=== PATIENT | female | born 1940 | race Caucasian/White ===

== ENCOUNTER → 2020-04-12 10:56 | Outpatient (BNVA) | payer MEDICARE, SELFPAY | PROVIDERS: Family Provider Family Medicine; PCP Family Medicine; Visit Provider Family Medicine | DX: I10 Essential (primary) hypertension (principal) | CPT/HCPCS: 80053; 85025 ==

== ENCOUNTER 2020-04-22 10:37 | Outpatient (CLI) | payer MEDICARE, SELFPAY ==
--- NOTE | 2020-04-22 11:00 | MR_ITS ---
WS: [id number] MRI LUMBAR SPINE NONCONTRAST TECHNIQUE: Sagittal T1, T2 and STIR imaging. Axial T1 and T2 imaging. CLINICAL INFORMATION: M48.07 Spinal stenosis, lumbosacral region COMPARISON: MRI August 20, 2013 FINDINGS: Mild lumbar curve. No acute compression. Degenerative disc disease has progressed since 2013. Progres sed disc space narrowing throughout the lumbar spine worse at L4-5. L1-L2: Mild disc bulging with osteophytic ridging. Tiny left subarticular protrusion. Slight impingem ent traversing left L2 nerve root. Mild left foraminal narrowing. Mild facet arthropathy. L2-L3: Mild disc bulging with osteophytic ridging. Moderate central canal stenosis is new from previo us. Shallow left central and pericentral protrusion. Impingement on the traversing L3 nerve roots alesha aterally. Moderate left foraminal narrowing. L3-L4: Mild disc bulging with osteophytic ridging. Moderate central canal stenosis is new. Impingemen t traversing right L4 nerve root. Mild left foraminal narrowing. Mild facet arthropathy. L4-L5: Mild disc bulging with osteophytic ridging. Mild central canal stenosis is stable. Impingement traversing L5 nerve roots. Mild to moderate right foraminal narrowing. Mild facet arthropathy. L5-S1: Mild disc bulging with slight effacement of the ventral thecal sac. Slight contact of the prabhjot ersing left greater than right S1 nerve roots. Foramen are patent. Mild facet arthropathy. Visualized pelvic bony structures: Normal. Paravertebral soft tissues: Normal. MR/MR lumbar spine wo con* [id number] IMPRESSION: 1. Mild lumbar curve. No acute compression. 2. Moderate central canal stenosis L2-L3 and L3-L4 has progressed since 2013. Mild central canal stenosis L4-5 is stable. 3. Shallow central left pericentral protrusion L2-3 is new from previous with moderate central canal stenosis and impingement on the traversing L3 nerve root s bilaterally. 4. Moderate left L2-3 foraminal narrowing with a left foraminal protrusion imp inges the exiting left L2 nerve root. 5. Mild to moderate foraminal narrowing left L3-L4 and right L4-5.
== END 2020-04-22 10:38 | disposition home or self-care (01) ==
LOC: RADSHAW 10:43
PROVIDERS: PCP Family Medicine; Visit Provider Family Medicine
DX: M48.07 Spinal stenosis, lumbosacral region (principal); M51.26 Other intervertebral disc displacement, lumbar region
CPT/HCPCS: 72148

== ENCOUNTER 2020-04-25 13:57 | Outpatient (CLI) | payer MEDICARE, SELFPAY ==
--- NOTE | 2020-04-25 14:07 | XRR_ITS ---
PROCEDURE INFORMATION: Exam: XR Lumbosacral Spine, 2 or 3 Views Exam date and time: 04/25/2020 2:31 PM Age: 80 years old Clinical indication: Low back pain; Additional info: Low back pain x 2 years TECHNIQUE: Imaging protocol: XR of the lumbosacral spine, 2 or 3 views. COMPARISON: MR lumbar spine wo con* [id number] 04/22/2020 10:59 AM FINDINGS: Vertebrae: There is multilevel intervertebral disc space narrowing at seen corresponding to severe osteoarthritis No acute fracture. Normal alignment. Soft tissues: Unremarkable. XR/XR lumbar spine f/e only [id number] IMPRESSION: No acute findings. Severe osteoarthritis
== END 2020-04-25 13:58 | disposition home or self-care (01) ==
LOC: RAD 14:05
PROVIDERS: PCP Family Medicine; Visit Provider Licensed Practical Nurse
DX: M51.17 Intervertebral disc disorders with radiculopathy, lumbosacral region (principal); M47.816 Spondylosis without myelopathy or radiculopathy, lumbar region
CPT/HCPCS: 72120; 99204

== ENCOUNTER → 2021-03-28 11:59 | Outpatient (BNVA) | payer MEDICARE, SELFPAY | PROVIDERS: PCP Family Medicine; Visit Provider Family Medicine | DX: I10 Essential (primary) hypertension (principal) | CPT/HCPCS: 80053; 84443; 85025 ==

== ENCOUNTER 2021-07-15 09:34 | Emergency (ER) | payer MEDICARE, SELFPAY ==
[2021-07-15 09:36] VITALS: BP 118/68; PULSE 111; RESP 17; TEMP 36.5; O2SAT 96; BMI 25.0
--- NOTE | 2021-07-15 09:55 | XRR_ITS ---
PROCEDURE INFORMATION: Exam: XR Chest Exam date and time: 07/15/2021 9:55 AM Age: 81 years old Clinical indication: Other: Weakness; Additional info: Fall, weakness TECHNIQUE: Imaging protocol: XR of the chest. Views: 1 view. COMPARISON: CR Chest 1 [place] [id number] 03/15/2016 12:17 PM FINDINGS: Lungs: Unremarkable. No consolidation. Pleural spaces: Unremarkable. No pleural effusion. No pneumothorax. Heart/Mediastinum: Unremarkable. No cardiomegaly. Bones/joints: No acute findings. XR/XR chest 1V portable [id number] IMPRESSION: No acute findings.
--- NOTE | 2021-07-15 09:55 | ED_ITS ---
HPI - Fall General: Chief Complaint: Fall Stated Complaint: FALL/ WEAKNESS Time Seen by Provider: 07/15/21 09:55 History of Present Illness: HPI Narrative: 81-year-old female presents emergency room with complaint of a fall this morning around 6 AM and was down for about an hour and could not get up off the floor. She is not previously had issues with falls. She had just gotten up off the toilet when this happened. EMS reports on arrival her sats are normal and she was in A. fib. I cannot find anywhere in her chart that she was previously diagnosed with A. fib although she is on verapamil 120 extended release daily. Nothing in her previous notes and no EKGs or monitor strips from the past that showed atrial fibrillation patient never remembers being told she had any irregular heartbeat or atrial fibrillation she is not on any anticoagulants she denies any other injuries. She cannot recall all the events. She not having any chest pain at this time. MD complaint: fall Associated symptoms-after fall: Denies abdominal pain or chest pain Review of Systems Const: Denies: fever(s), chills, body aches, change in appetite, fatigue or malaise ENMT: Denies: throat pain, ear or mastoid pain, nasal discharge or nasal congestion Card: Denies: chest pain, edema, dyspnea on exertion or orthopnea Resp: Denies: dyspnea, productive cough or non-productive cough GI: Denies: abdominal pain, nausea, vomiting, hematemesis, coffee ground emesis, diarrhea, constipation, bloating, hematochezia or melena : Denies: flank pain, difficulty voiding, dysuria, urinary frequency or urinary urgency Skin/Breast: Denies: rash or pruritus PFSH ED PFSH: Medical History Anxiety Hypertension Intervertebral disc disorder with radiculopathy of lumbosacral region Lumbar stenosis with neurogenic claudication Lumbosacral spinal stenosis Surgical History History of surgical removal of skin lesion Family History Mother Heart disease Father Heart disease Social History Smoking and tobacco status: never smoked Alcohol intake: never Household members: spouse and other Details: Primary caregiver for her Marital status: service: No Current occupational status: retired History of recent travel: No Physical Exam Const: COMMON NORMALS: no acute distress GENERAL APPEARANCE: cooperative and comfortable ORIENTATION/CONSCIOUSNESS: Yes awake, Yes oriented to person, Yes oriented to place and Yes oriented to time HENMT: COMMON NORMALS: normocephalic, atraumatic and hearing grossly normal bilaterally HEAD & SCALP: normocephalic and atraumatic Neck/C-Spine: COMMON NORMALS: no JVD Resp: COMMON NORMALS: normal respiratory effort, No retractions, No use of accessory muscles and clear to auscultation bilaterally AUSCULTATION: clear to auscultation bilaterally Cardio: COMMON NORMALS: no JVD, regular rate, regular rhythm and No murmurs present (Cardio) RATE: regular rate RHYTHM: regular rhythm GI: COMMON NORMALS: Soft to palpation and No hepatosplenomegaly present AUSCULTATION: Yes normoactive bowel sounds PALPATION: Yes Soft to palpation, No Tenderness to palpation present (GI), No Guarding due to palpation present (GI) and Yes No hepatosplenomegaly present Extremity: COMMON NORMALS: normal to inspection, capillary refill normal, no clubbing, cyanosis or edema, no calf tenderness and no pedal edema Neuro: SENSORIUM/ORIENTATION: Yes oriented to person, Yes oriented to place and Yes oriented to time Skin: COMMON NORMALS: no rashes or lesions noted GENERAL SKIN EXAM: no rashes or lesions noted Course Vital Signs: Vital signs: Vital Signs Temperature 97.7 F 07/15/21 09:36 Pulse Rate 76 07/15/21 12:46 Respiratory Rate 18 07/15/21 12:46 Blood Pressure 129/68 07/15/21 12:46 Pulse Oximetry 93 07/15/21 12:46 MDM - Fall MDM Narrative: Medical decision making narrative: Atrial fibrillation pre- existing. Patient rate is controlled at this time. She is not having any further symptoms. Wearing Goed[place] discharge her home continue current medications have her follow-up with her primary care doctor within the week. Has any worsening or change symptoms return. Lab Data: Labs: Lab Results 07/15/21 07/15/21 07/15/21 09:25 09:25 09:25 WBC 17.1 10^3/uL H 10 ^3/uL (4.0-10.0) RBC 4.14 10^6/uL 10^6 /uL (4.1-5.3) Hgb 12.2 g/dL g/dL (11.5-15.3) Hct 36.4 % L % (37.0-47.0) MCV 87.9 fl fl (81-99) MCH 29.5 pg pg (28.0-34.0) MCHC 33.5 g/dL g/dL (30.0-36.0) RDW 13.7 % % (12.1-15.1) Plt Count 793 10^3/cmm H 10 ^3/cmm (130-400) MPV 10.2 fL fL (7.4-10.4) Neut % (Auto) 83.2 % % Lymph % (Auto) 7.9 % % [place] % (Auto) 4.9 % % Eos % (Auto) 3.0 % % Baso % (Auto) 0.4 % % Neut # (Auto) 14.22 10^3/uL H 1 0^3/uL (1.8-7.7) Lymph # (Auto) 1.3 10^3/uL 10^3/ uL (0.8-4.8) [place] # (Auto) 0.8 10^3/uL 10^3/ uL (0.2-0.9) Eos # (Auto) 0.5 10^3/uL 10^3/ uL (0.0-0.8) Baso # (Auto) 0.1 10^3/uL 10^3/ uL (0.0-0.1) Nucleated RBC % (a uto) 0 % % Nucleated RBCs # 0.0 /100WBC /100W BC Sodium 135 mmol/L L mmol /L (136-145) Potassium 4.8 mmol/L mmol/L (3.5-5.1) Chloride 99 mmol/L mmol/L (98-107) Carbon Dioxide 18 mmol/L L mmol/ L (22-29) Anion Gap 22.8 H (5-19) BUN 30 mg/dL H mg/dL (8-23) Creatinine 1.0 mg/dL H mg/dL (0.5-0.9) GFR Calculation Not Reportable Glucose 90 mg/dL mg/dL (65-115) Calculated Osmolal ity 286 mOsm/kg mOsm/ kg (285-295) Calcium 8.3 mg/dL L mg/dL (8.5-10.5) Total Bilirubin 0.4 mg/dL mg/dL (0.15-1.2) AST 9 U/L U/L (0-32) ALT 6 U/L U/L (0-33) Alkaline Phosphata se 275 IU/L H IU/L (35-105) Creatine Kinase Troponin T Baselin e 22 ng/L H ng/L (0-10) Troponin T 120 Min qagan [place] Delta Troponin T NT-Pro-B Natriuret Pep Total Protein 6.2 g/dL L g/dL (6.6-8.7) Albumin 3.3 g/dL L g/dL (3.5-5.2) Globulin 2.9 g/dL g/dL (1.3-4.6) Urine Color Urine Appearance Urine pH Ur Specific Gravit y Urine Protein Urine Glucose (UA) Urine Ketones Urine Blood Urine Nitrate Urine Bilirubin Urine Urobilinogen Ur Leukocyte Charline ase 07/15/21 07/15/21 07/15/21 09:25 10:55 11:21 WBC RBC Hgb Hct MCV MCH MCHC RDW Plt Count MPV Neut % (Auto) Lymph % (Auto) [place] % (Auto) Eos % (Auto) Baso % (Auto) Neut # (Auto) Lymph # (Auto) [place] # (Auto) Eos # (Auto) Baso # (Auto) Nucleated RBC % (a uto) Nucleated RBCs # Sodium Potassium Chloride Carbon Dioxide Anion Gap BUN Creatinine GFR Calculation Glucose Calculated Osmolal ity Calcium Total Bilirubin AST ALT Alkaline Phosphata se Creatine Kinase 33 U/L U/L (26-192) Troponin T Baselin e Troponin T 120 Min qagan [place] 19.12 ng/L H ng/L (0-10) Delta Troponin T -2.88 ABS# L ABS# (0-10) NT-Pro-B Natriuret Pep 8943 pg/mL H pg/m L (0-450) Total Protein Albumin Globulin Urine Color Yellow (Yellow) Urine Appearance Clear (CLEAR) Urine pH 5 (5-7) Ur Specific Gravit y 1.010 (1.005-1.030) Urine Protein Neg (Negative) Urine Glucose (UA) Norm (Normal) Urine Ketones 1+ H (Negative) Urine Blood Neg (Negative) Urine Nitrate Negative (Negative) Urine Bilirubin Neg (Negative) Urine Urobilinogen Norm mg/dL mg/dL (Negative) Ur Leukocyte Charline ase Negative (Negative) Discharge Plan Discharge Patient Disposition: Home Clinical Impression: Atrial fibrillation Qualifiers: Atrial fibrillation type: longstanding persistent Qualified Code(s): I48.11 - Longstanding persistent atrial fibrillation Condition: Stable Prescriptions: New aspirin 81 mg tablet,delayed release (DR/EC) 81 mg PO DAILY Qty: 30 RF: 0 No Action tacrolimus 0.1 % ointment 1 applic topical BID Qty: 100 RF: 1 nitroglycerin [Nitrostat] 0.4 mg tablet, sublingual 0.4 mg SUBLINGUAL Q5M PRN (Reason: chest pain) Qty: 25 RF: 3 verapamil 120 mg tablet extended release 120 mg PO BID 30 Days Qty: 180 RF: 3 sulindac 200 mg tablet 200 mg PO BID PRN (Reason: inflammation knee) 30 Days Qty: 60 RF: 2 losartan 100 mg tablet 100 mg PO DAILY 90 Days Qty: 90 RF: 3 lorazepam 1 mg tablet 1 mg PO BID PRN (Reason: anxiety) 60 Days Qty: 120 RF: 2 citalopram 40 mg tablet 40 mg PO .once daily 90 Days Qty: 90 RF: 1 hydrocodone-acetaminophen 10-325 mg tablet 1 tab PO Q6H PRN (Reason: pain) 30 Days Qty: 120 RF: 0 mirtazapine 15 mg tablet 15 mg PO DAILY 90 Days Qty: 90 RF: 1 Discharge Orders: Discharge ED (Routine); Ordered 07/15/21 Ordered By: Jonel Stanford Referrals: Theodora Neal MD [Primary Care Provider] - Discharge Diet: Usual diet Discharge Activity: Limit activity as instructed Patient Instructions: Opioid Safety Activity Restrictions/Additional Instructions: Follow-up with your primary care doctor within the next 2 to 3 days. Return if you have further problems. Start 81 mg tablet aspirin daily. Case management will call make arrangements for you to have a 48-hour Holter monitor. Coding Level of Care Code ED Auto Body Estimator for Leah Fwd Exam Comprehensive
[2021-07-15 10:00] LABS: Basophils # 0.1 10^3/uL (0.0-0.1); Basophils % 0.4 %; Eosinophils # 0.5 10^3/uL (0.0-0.8); Hematocrit 36.4 % (37.0-47.0); Hemoglobin 12.2 g/dL (11.5-15.3); Lymphocytes # 1.3 10^3/uL (0.8-4.8); Lymphocytes % 7.9 %; Mean Corpuscular HGB Conc 33.5 g/dL (30.0-36.0); Mean Corpuscular Hemoglobin 29.5 pg (28.0-34.0); Mean Corpuscular Volume 87.9 fl (81-99); Mean Platelet Volume 10.2 fL (7.4-10.4); Monocytes # 0.8 10^3/uL (0.2-0.9); Monocytes % 4.9 %; Neutrophils # 14.22 10^3/uL (1.8-7.7); Neutrophils % 83.2 %; Nucleated Red Blood Cells % 0 %; Platelet Count 793 10^3/cmm (130-400); Red Blood Count 4.14 10^6/uL (4.1-5.3); Red Cell Distribution Width 13.7 % (12.1-15.1); White Blood Count 17.1 10^3/uL (4.0-10.0)
[2021-07-15 10:13] LABS: Troponin(5th) Baseline 22 ng/L (0-10)
[2021-07-15 10:15] LABS: Alanine Aminotransferase 6 U/L (0-33); Albumin Level 3.3 g/dL (3.5-5.2); Alkaline Phosphatase 275 IU/L (35-105); Anion Gap 22.8 (5-19); Aspartate Amino Transferase 9 U/L (0-32); Blood Urea Nitrogen 30 mg/dL (8-23); Calcium 8.3 mg/dL (8.5-10.5); Carbon Dioxide 18 mmol/L (22-29); Chloride 99 mmol/L (98-107); Globulin 2.9 g/dL (1.3-4.6); Glucose 90 mg/dL (65-115); Osmolality Calculated 286 mOsm/kg (285-295); Potassium 4.8 mmol/L (3.5-5.1); Sodium 135 mmol/L (136-145); Total Bilirubin 0.4 mg/dL (0.15-1.2); Total Protein 6.2 g/dL (6.6-8.7)
[2021-07-15 10:40] LABS: Creatine Phosphokinase 33 U/L (26-192); NT Pro B Type Natriuretic Pept 8943 pg/mL (0-450)
[2021-07-15 11:17] LABS: Add Urine Microscopic? NO; Charge for UA Resulting for Rev
[2021-07-15 11:24] LABS: Bilirubin Urine Neg (Negative); Blood Urine Neg (Negative); Glucose Urine UA Norm (Normal); Ketones Urine 1+ (Negative); Leukocyte Esterase Urine Negative (Negative); Nitrate Urine Negative (Negative); Protein Urine Neg (Negative); Urine Appearance Clear (CLEAR); Urine Color Yellow (Yellow); Urobilinogen Urine Norm (Negative); pH Urine 5 (5-7)
[2021-07-15 11:50] LABS: Troponin 5 2HR 19.12 ng/L (0-10)
[2021-07-15] MEDS: verapamil ER 240 mg Tablet 120 MG PO (11:50)
[2021-07-15] MEDS: metoprolol tartrate 1 mg/1 mL SDV 5 mL 5 MG IVP (11:50)
[2021-07-15 11:51] LABS: Troponin 5 2HR Delta -2.88 ABS# (0-10)
[2021-07-15 12:46] VITALS: BP 129/68; PULSE 76; RESP 18; O2SAT 93
--- NOTE | 2021-07-15 13:10 | DCPLANNER ---
scientific research manager had message to schedule an outpatient 48 hour halter monitor for patient. scientific research manager faxed signed order to heart care, who will call patient with appointment information.
--- NOTE | 2021-07-15 15:55 | ECG_ITS ---
[facility] Test Date: 2021-07-15 Pat Name: Evangelina Vides Department: Room: Gender: Female Autocad Detailer: : 1940 Requested By: Delores Dawson Order Number: [id number] Reading MD: CHHAYA HARRELL Measurements Intervals [place] Rate: 101 P: MO: QRS: -9 QRSD: 85 T: 31 QT: 348 QTc: 453 Interpretive Statements ATRIAL FIBRILLATION WITH RAPID VENTRICULAR RESPONSE LOW QRS VOLTAGE IN PRECORDIAL LEADS [QRS DEFLECTION < 1.0 mV IN CHEST LEADS] ANTEROSEPTAL MYOCARDIAL INFARCTION , PROBABLY OLD [40+ ms Q WAVE IN V1-V4] Compared to ECG 03/16/2016 04:49:52 Low QRS voltage now present Myocardial infarct finding now present Sinus rhythm no longer present First degree AV block no longer present Electronically Signed On 07-16-2021 19:59:58 COMPUTER LABORATORY TECHNICIAN by CHHAYA HARRELL [id number]
--- NOTE | 2021-07-21 07:35 | DCPLANNER ---
Patient [facility]
== END 2021-07-15 12:48 | disposition home or self-care (01) ==
PROVIDERS: Physician Assistant; Emergency Provider Family Medicine; PCP Family Medicine
DX: I48.11 Longstanding persistent atrial fibrillation (principal); I10 Essential (primary) hypertension
CPT/HCPCS: 36415; 71045; 80053; 81003; 82550; 83880; 84484; 85025; 93005; 96374; 99283; J3490

== ENCOUNTER 2021-07-18 15:04 | Outpatient (CLI) | payer MEDICARE, SELFPAY ==
--- NOTE | 2021-07-18 15:46 | CT_ITS ---
WS: [id number] Exam: CT head wo con* [id number] Date/Time of Exam: 07/18/2021 3:46 PM Reason For Exam: acute left sided weakness DLP: 1172.[address] scans at [facility] use at least one of these dose optimization techniques: automated e xposure control; mA and/or kV adjustment per patient size (includes targeted exams where dose is matc hed to clinical indication); or iterative reconstruction. There is an area of decreased attenuation in the right thalamus suspicious for an acute or subacute i nfarct. No sign of acute intracranial bleed. No mass effect or shift. The ventricles and basal cister ns are normal in size and configuration. No extra-axial fluid collections are noted. The skull is int act. The facial sinuses are clear. Trace amount of fluid in the dependent right mastoids. Normal left mastoids. CT/CT head wo con* [id number] IMPRESSION: 1. 1.5 cm area of decreased attenuation in the right thalamus suspicious for medel bacute or acute infarct. No bleed or mass effect. 2. Trace amount of fluid in the right mastoids.
== END 2021-07-18 15:05 | disposition home or self-care (01) ==
PROVIDERS: PCP Family Medicine; Visit Provider Family Medicine
DX: R53.1 Weakness (principal)
CPT/HCPCS: 70450

== ENCOUNTER 2021-07-19 13:36 | Observation (INO) | payer MEDICARE, OTHER, SELFPAY ==
--- NOTE | 2021-07-19 13:38 | ED_ITS ---
HPI - Neuro Symptoms/Deficit General: Chief Complaint: General Medical Stated Complaint: EXTREMITY NUMBNESS Time Seen by Provider: 07/19/21 13:38 History of Present Illness: HPI Narrative: 81-year-old male presents emergency room complaining of left leg weakness. Seen a couple days ago she had an episode where she fell after getting off the toilet states she frequently falls she had no weakness at that time she had very mild A. fib responded rather quickly we noted she was on verapamil her daughter was there at the times a day had been told she had irregular heartbeat in the past we started on aspirin discharge home she did follow-up with her primary care doctor this week and a CT of the head was done showed a new subacute right infarct. She still has weakness in her left leg and has difficulty raising off the bed which is new from we seen her previously she also has a little bit of left arm drift. Her daughter reports that this morning she had bilateral numbness tingling loss of sensation in the arms and legs that has resolved. They have noticed any speech or swallowing difficulty she states her's extremities feel like they are asleep and her feet feel like they are on [id number]. She denies any visual changes. Onset (ago): day(s) Timing confirmed by: family member History of same: Yes Severity: mild Quality: weak (Left leg) Relieving factors: none Exacerbating factors: none Associated symptoms: Reports weakness; Deny chest pain, cough, diaphoresis, fevers/chills, headache(s), anorexia, malaise, nausea, seizures, short of breath, syncope, tingling, vertigo or vomiting Treatments Prior to Arrival: none Review of Systems Const: Denies: malaise or diaphoresis ENMT: Denies: throat pain, ear or mastoid pain, nasal discharge or nasal congestion Card: Denies: chest pain or syncope Resp: Denies: dyspnea, productive cough or non-productive cough GI: Denies: nausea or vomiting : Denies: flank pain, difficulty voiding, dysuria, urinary frequency or urinary urgency Skin/Breast: Denies: rash or pruritus Neuro: Denies: headache(s) or vertigo PFS ED PFSH: Medical History Anxiety CAD (coronary artery disease) GERD (gastroesophageal reflux disease) Hypercholesteremia Hypertension Intervertebral disc disorder with radiculopathy of lumbosacral region Lumbar stenosis with neurogenic claudication Lumbosacral spinal stenosis Type 2 diabetes mellitus Surgical History History of surgical removal of skin lesion Family History Mother Heart disease Father Heart disease Social History Smoking and tobacco status: never smoked Alcohol intake: never Household members: spouse and other Details: Primary caregiver for her Marital status: service: No Current occupational status: retired History of recent travel: No NIH stroke score NIHSS: Level Of Consciousness - 1a: 0 Level Of Consciousness Questions - 1b: Both Correct Level Of Consciousness Commands - 1c: Both Correct Best Gaze - 2: Normal Visual [place] - 3: No Visual Loss Facial Palsy - 4: Normal Motor Arm Right - 5: No Drift Motor Arm Left - 5: Drift Motor Leg Right - 6: No Drift Motor Leg Left - 6: Effort Against Mobile Limb Ataxia - 7: Present In One Limb Sensory - 8: Mild To Moderate Loss Best Language - 9: No Aphasia Dysarthia - 10: Mild/Moderate Dysarthia Extinction And Inattention - 11: 0 Score: Total Score: 6 Physical Exam Const: GENERAL APPEARANCE: cooperative and comfortable ORIENTATION/CONSCIOUSNESS: Yes awake HENMT: COMMON NORMALS: normocephalic, atraumatic, hearing grossly normal bilaterally, external ears normal, EAC's normal, TM's normal bilaterally, Normal nasal mucous membranes and turbinates present, moist oral mucous membranes and oropharynx normal HEAD & SCALP: normocephalic and atraumatic NOSE: Normal nasal mucous membranes and turbinates present EXTERNAL EAR: Yes external ears normal EXTERNAL AUDITORY CANAL: EAC's normal TYMPANIC MEMBRANE: TM's normal bilaterally Eye: COMMON NORMALS: Equal, round and reactive pupils present, EOMs intact bilaterally, conjunctivae normal and no scleral icterus CONJUNCTIVA: Yes conjunctivae normal PUPIL: Yes Equal, round and reactive pupils present Neck/C-Spine: COMMON NORMALS: full ROM, no lymphadenopathy, supple and no JVD Resp: COMMON NORMALS: normal respiratory effort, No retractions, No use of accessory muscles and clear to auscultation bilaterally AUSCULTATION: clear to auscultation bilaterally Cardio: COMMON NORMALS: no JVD, regular rate, regular rhythm and No murmurs p resent (Cardio) RATE: regular rate RHYTHM: regular rhythm GI: COMMON NORMALS: Soft to palpation and No hepatosplenomegaly present AUSCULTATION: Yes normoactive bowel sounds PALPATION: Yes Soft to palpation, No Tenderness to palpation present (GI), No Guarding due to palpation present (GI) and Yes No hepatosplenomegaly present Extremity: COMMON NORMALS: capillary refill normal, no clubbing, cyanosis or edema, no calf tenderness and no pedal edema Skin: COMMON NORMALS: no rashes or lesions noted GENERAL SKIN EXAM: no rashes or lesions noted Course Vital Signs: Vital signs: Vital Signs Temperature 97.4 F L 07/25/21 12:17 Pulse Rate 76 07/25/21 12:17 Respiratory Rate 16 07/25/21 12:17 Blood Pressure 120/53 07/25/21 12:17 Pulse Oximetry 93 07/25/21 12:17 MDM - Neuro Symptoms/Deficit MDM Narrative: Medical decision making narrative: Notable change from previous exam. Patient now has weakness in the left leg and some slight difficulty with speech.. Previously that had been her good leg. She had radicular symptoms in her right leg. Will admit for new stroke. Anticipate discharge to detention. Lab Data: Labs: Lab Results 07/19/21 07/19/21 15:04 15:04 WBC 14.1 10^3/uL H 10 ^3/uL (4.0-10.0) RBC 3.45 10^6/uL L 10 ^6/uL (4.1-5.3) Hgb 10.1 g/dL L g/dL (11.5-15.3) Hct 30.9 % L % (37.0-47.0) MCV 89.6 fl fl (81-99) MCH 29.3 pg pg (28.0-34.0) MCHC 32.7 g/dL g/dL (30.0-36.0) RDW 13.7 % % (12.1-15.1) Plt Count 853 10^3/cmm H 10 ^3/cmm (130-400) MPV 9.5 fL fL (7.4-10.4) Neut % (Auto) 76.2 % % Lymph % (Auto) 11.3 % % [place] % (Auto) 7.1 % % Eos % (Auto) 4.2 % % Baso % (Auto) 0.7 % % Neut # (Auto) 10.76 10^3/uL H 1 0^3/uL (1.8-7.7) Lymph # (Auto) 1.6 10^3/uL 10^3/ uL (0.8-4.8) [place] # (Auto) 1.0 10^3/uL H 10^ 3/uL (0.2-0.9) Eos # (Auto) 0.6 10^3/uL 10^3/ uL (0.0-0.8) Baso # (Auto) 0.1 10^3/uL 10^3/ uL (0.0-0.1) Nucleated RBC % (a uto) 0 % % Nucleated RBCs # 0.0 /100WBC /100W BC Sodium 136 mmol/L mmol/L (136-145) Potassium 4.7 mmol/L mmol/L (3.5-5.1) Chloride 102 mmol/L mmol/L (98-107) Carbon Dioxide 21 mmol/L L mmol/ L (22-29) Anion Gap 17.7 (5-19) BUN 25 mg/dL H mg/dL (8-23) Creatinine 0.9 mg/dL mg/dL (0.5-0.9) GFR Calculation Not Reportable Glucose 90 mg/dL mg/dL (65-115) Calculated Osmolal ity 286 mOsm/kg mOsm/ kg (285-295) Calcium 8.3 mg/dL L mg/dL (8.5-10.5) Total Bilirubin 0.3 mg/dL mg/dL (0.15-1.2) AST 10 U/L U/L (0-32) ALT 7 U/L U/L (0-33) Alkaline Phosphata se 198 IU/L H IU/L (35-105) Total Protein 6.3 g/dL L g/dL (6.6-8.7) Albumin 2.9 g/dL L g/dL (3.5-5.2) Globulin 3.4 g/dL g/dL (1.3-4.6) Discharge Plan Discharge Admit Provider: Guerrero Tanner Condition: Stable Discharge Orders: Discharge Order (Routine); Ordered 07/25/21 Ordered By: Horace Fuentes Discharge Diet: Cardiac and Diabetic Discharge Activity: Resume usual activity and Increase activity as tolerated Coding Level of Care Code ED Outdoor Advertising Leasing Agent for Leah Mchugh
[2021-07-19 13:47] VITALS: BP 141/77; PULSE 82; RESP 18; TEMP 36.8; O2SAT 93; BMI 23.5
--- NOTE | 2021-07-19 14:22 | XRR_ITS ---
PROCEDURE INFORMATION: Exam: XR Chest Exam date and time: 07/19/2021 2:22 PM Age: 81 years old Clinical indication: Cough; Additional info: Dyspnea/cough TECHNIQUE: Imaging protocol: XR of the chest. Views: 1 view. COMPARISON: CR (CHEST, ) 07/15/2021 10:07 AM FINDINGS: Lungs: Unremarkable. No consolidation. Pleural spaces: Unremarkable. No pleural effusion. No pneumothorax. Heart/Mediastinum: Unremarkable. No cardiomegaly. Bones/joints: Visualized osseous structures are intact. XR/XR chest 1V portable [id number] IMPRESSION: No acute findings.
--- NOTE | 2021-07-19 14:23 | ECG_ITS ---
[facility] Test Date: 2021-07-19 Pat Name: Evangelina Vides Department: Room: Gender: Female Exploitation Analyst: : 1940 Requested By: Jonel Mckenzie Order Number: [id number] Cady MD: Win Dunne M.D. Measurements Intervals [place] Rate: 80 P: 61 MS: 210 QRS: -12 QRSD: 82 T: 12 QT: 379 QTc: 438 Interpretive Statements SINUS RHYTHM WITH FIRST DEGREE AV BLOCK POSSIBLE LEFT ATRIAL ENLARGEMENT [-0.1mV P-WAVE IN V1/V2] LOW QRS VOLTAGE IN PRECORDIAL LEADS [QRS DEFLECTION < 1.0 mV IN CHEST LEADS] ANTEROSEPTAL MYOCARDIAL INFARCTION , OF INDETERMINATE AGE [40+ ms Q WAVE IN V1-V4] Compared to ECG 07/15/2021 10:37:08 First degree AV block now present Atrial fibrillation no longer present Myocardial infarct finding still present Electronically Signed On 07-20-2021 8:48:38 METEOROLOGIST LIAISON by Win Dunne M.D. [id number]
[2021-07-19 15:10] LABS: Basophils # 0.1 10^3/uL (0.0-0.1); Basophils % 0.7 %; Eosinophils # 0.6 10^3/uL (0.0-0.8); Eosinophils % 4.2 %; Hematocrit 30.9 % (37.0-47.0); Hemoglobin 10.1 g/dL (11.5-15.3); Lymphocytes # 1.6 10^3/uL (0.8-4.8); Lymphocytes % 11.3 %; Mean Corpuscular HGB Conc 32.7 g/dL (30.0-36.0); Mean Corpuscular Hemoglobin 29.3 pg (28.0-34.0); Mean Corpuscular Volume 89.6 fl (81-99); Mean Platelet Volume 9.5 fL (7.4-10.4); Monocytes % 7.1 %; Neutrophils # 10.76 10^3/uL (1.8-7.7); Neutrophils % 76.2 %; Nucleated Red Blood Cells % 0 %; Platelet Count 853 10^3/cmm (130-400); Red Blood Count 3.45 10^6/uL (4.1-5.3); Red Cell Distribution Width 13.7 % (12.1-15.1); White Blood Count 14.1 10^3/uL (4.0-10.0)
[2021-07-19 15:26] LABS: Alanine Aminotransferase 7 U/L (0-33); Albumin Level 2.9 g/dL (3.5-5.2); Alkaline Phosphatase 198 IU/L (35-105); Anion Gap 17.7 (5-19); Aspartate Amino Transferase 10 U/L (0-32); Blood Urea Nitrogen 25 mg/dL (8-23); Calcium 8.3 mg/dL (8.5-10.5); Carbon Dioxide 21 mmol/L (22-29); Chloride 102 mmol/L (98-107); Globulin 3.4 g/dL (1.3-4.6); Glucose 90 mg/dL (65-115); Osmolality Calculated 286 mOsm/kg (285-295); Potassium 4.7 mmol/L (3.5-5.1); Sodium 136 mmol/L (136-145); Total Bilirubin 0.3 mg/dL (0.15-1.2); Total Protein 6.3 g/dL (6.6-8.7)
--- NOTE | 2021-07-19 18:08 | P.HP_ITS ---
Providers/Chief Complaint Admitting Physician: Guerrero Tanner Primary Care Provider: Theodora Neal MD Chief Complaint: EXTREMITY NUMBNESS History of Present Illness Pleasant 81-year-old lady is accompanied in ER by her daughter, with history of atrial fibrillation, degenerative disc disease, lumbosacral radiculopathy, frequent falls, due to which was not on anticoagulation complaint of numbness in her feet and legs, with new left side upper and lower extremity weakness, as w ell as her arm flopping . Her daughter noticed perhaps slightly slurred speech. All of this reportedly started on Saturday. She was referred for evaluation by CT of the head yesterday which showed 1.5 cm area of decreased attenuation in the right thalamus suspicious of subacute or acute infarct. No bleed or mass-effect. Trace amount of fluid in the right mastoids. She came in today due to persistence of the symptoms and new CVA on imaging. Review of Systems Const: Denies: fever(s), chills, body aches or malaise Eyes: Denies: change in vision or eye redness ENMT: Denies: throat pain, oral sores or ear or mastoid pain Card: Denies: chest pain, edema, pre-syncope or dyspnea on exertion Resp: Denies: dyspnea, productive cough, change in phlegm color or hemoptysis GI: Reports: diarrhea; Denies: abdominal pain, nausea, vomiting, constipation, hematochezia or melena : Denies: flank pain, urinary frequency or hematuria Musc: Reports: back pain; Denies: joint swelling or joint redness Skin/Breast: Denies: rash, sores or new lesions Neuro: Reports: numbness in extremities and weakness in extremities; Denies: headache(s), dizziness, confusion or seizure-like activity Endo: Denies: polyuria or polydipsia Ja/Lymph: Denies: easy bleeding or purpura All/Imm: Denies: urticaria, throat swelling or tongue swelling Medications/Allergies Home Medications Medication Instructions Recorded Confirmed Last Taken Type verapamil 120 mg tablet,extended 120 mg PO BID 30 Days #180 tab 03/02/21 07/19/21 07/19/21 07:30 Rx release nitroglycerin 0.4 mg sublingual 0.4 mg SUBLINGUAL Q5M PRN #25 tab 03/28/21 07/19/21 Unknown Rx tablet lorazepam 1 mg tablet 1 mg PO BID PRN 60 Days #120 tab 05/18/21 07/19/21 07/19/21 07:30 Rx hydrocodone 10 mg-acetaminophen 1 tab PO Q6H PRN 30 Days #120 tab 07/13/21 07/19/21 07/19/21 07:30 Rx 325 mg tablet acetaminophen [Tylenol Ex Str 500 - 1,000 mg PO Q4H PRN 07/19/21 07/19/21 Unknown History Rapid Release] aspirin 81 mg PO QAM 07/19/21 07/19/21 07/19/21 07:30 History bismuth subsalicylate 262 mg PO PRN 07/19/21 07/19/21 07/19/21 09:00 History [Pepto-Bismol] citalopram 40 mg PO QAM 07/19/21 07/19/21 07/19/21 07:30 History losartan 100 mg PO QAM 07/19/21 07/19/21 07/19/21 07:30 History mirtazapine 15 mg PO BEDTIME 07/19/21 07/19/21 07/18/21 History tacrolimus See Rx Instructions .ROUTE .COMPLEX 07/19/21 07/19/21 Unknown History Allergies Allergy/AdvReac Type Severity Reaction Status Date / Time Penicillins Allergy can't Verified 07/19/21 15:13 remember PFSH Acute PFSH: Medical History (Updated 07/19/21 @ 18:18 by Guerrero Tanner MD) Anxiety CAD (coronary artery disease) GERD (gastroesophageal reflux disease) Hypercholesteremia Hypertension Intervertebral disc disorder with radiculopathy of lumbosacral region Lumbar stenosis with neurogenic claudication Lumbosacral spinal stenosis Surgical History History of surgical removal of skin lesion Family History Mother Heart disease Father Heart disease Social History Smoking and tobacco status: never smoked Alcohol intake: never Household members: spouse and other Details: Primary caregiver for her Marital status: service: No Current occupational status: retired History of recent travel: No Vitals/I&O/Wt Last Vital Signs Temp 98.3 F 07/19/21 13:47 Pulse 82 07/19/21 13:47 Resp 18 07/19/21 13:47 BP 141/77 07/19/21 13:47 Pulse Ox 93 07/19/21 13:47 Weight last 48 hrs Weight 68.039 kg Physical Exam Const: COMMON NORMALS: no acute distress and patient oriented x3 GENERAL APPEARANCE: frail appearing HENMT: COMMON NORMALS: oropharynx normal Neck/C-Spine: COMMON NORMALS: no JVD Resp: COMMON NORMALS: normal respiratory effort and clear to auscultation bilaterally AUSCULTATION: clear to auscultation bilaterally Cardio: COMMON NORMALS: no JVD, regular rhythm, S1 normal heart sound present, S2 normal heart sound present and No murmurs present (Cardio) RHYTHM: regular rhythm HEART SOUNDS: S1 normal heart sound present and S2 normal heart sound present GI: COMMON NORMALS: Normal to inspection, nondistended, normoactive bowel sounds present, Soft to palpation and non-tender PALPATION: Yes Soft to palpation Extremity: COMMON NORMALS: no joint enlargement and no pedal edema Neuro: COMMON NORMALS: patient oriented x3 and moves all extremities SENSORIUM/ORIENTATION: Yes alert MENINGEAL SIGNS: Yes no meningeal signs SPEECH: speech normal and Other neuro speech findings (Daughter thought noticed slight slurring earlier) SENSORY EXAM: Yes extremities (Diminished sensation mildly, although no level) and Normal double simultaneous stimulation for sensation; No sensory level loss detected MOTOR EXAM: Pronator motor function not present and Other motor observations present (4/5 LUE, 3+/5 LLE) COORDINATION: other (mild dysmetria L arm) OTHER: Pupils equal, reactive, no trouble tracking, visual mccarty full to confrontation. Skin: COMMON NORMALS: no rashes or lesions noted GENERAL SKIN EXAM: no rashes or lesions noted Data : 07/19/21 15:04 07/19/21 15:04 A&P Assessment and plan (1) CVA (cerebral vascular accident): Discussed with her and her daughter. Concern of CVA due to atrial fibrillation, although has not been a candidate for anticoagulation. Continue aspirin. Add statin. Additional assessment with carotid Doppler. Echocardiogram. Monitor on telemetry. Monitor blood pressures. PT, OT, ST. Follow up with neurology. Consider referral for CHRISTIAN closure device. Status: Acute Qualifiers: CVA mechanism: thrombosis Precerebral and cerebral artery: middle cerebral artery Laterality of affected vessel: right Qualified Code(s): I63.311 - Cerebral infarction due to thrombosis of right middle cerebral artery (2) Atrial fibrillation: Continue aspirin, verapamil. Outpatient follow-up to consider referral for CHRISTIAN closure device. Status: Acute Qualifiers: Atrial fibrillation type: longstanding persistent Qualified Code(s): I48.11 - Longstanding persistent atrial fibrillation (3) Lumbar stenosis with neurogenic claudication: Status: Acute (4) Intervertebral disc disorder with radiculopathy of lumbosacral region: Status: Acute (5) Hypertension: Status: Acute Qualifiers: Hypertension type: essential hypertension Qualified Code(s): I10 - Essential (primary) hypertension Attestations Medical Necessity Statement*: Admission of over 2 midnights anticipated for assessment management of new CVA. 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
[2021-07-19 20:00] VITALS: BP 148/70; PULSE 93; RESP 16; TEMP 36.6; O2SAT 98; BMI 22.8
[2021-07-19] MEDS: HYDROcodone-acetaminophen 10-325 mg Tablet 1 TAB PO (20:30)
[2021-07-19] MEDS: mirtazapine 15 mg Tablet PO (20:30)
[2021-07-19] MEDS: verapamil ER 240 mg Tablet 120 MG PO (20:30)
[2021-07-19] MEDS: enoxaparin 40 mg/0.4 mL Syringe SUBCUT (20:30)
--- NOTE | 2021-07-19 22:23 | PC.NURSE ---
193 Pt lying bed with daughter at bedside. Requests food. Reports not eaten since breakfast. NPO at present until bedside swallow done. Explained to pt and family. ISA
--- NOTE | 2021-07-19 22:26 | PC.NURSE ---
2000 bedside swallow per this nurse, normal. [place], apple sauce, water, and string cheese given. Meal setup. Family at bedside.
--- NOTE | 2021-07-19 22:27 | PC.NURSE ---
2200 Pt resting in bed. Easily arouses. Denies pain at present. Call light in reach. J
[2021-07-20] VITALS (7 sets, daily range): BP systolic 129–143; BP diastolic 64–84; PULSE 66–87; RESP 16–18; TEMP 36.3–36.9; O2SAT 91–94
[2021-07-20 05:23] LABS: Basophils # 0.1 10^3/uL (0.0-0.1); Basophils % 0.9 %; Eosinophils # 0.5 10^3/uL (0.0-0.8); Eosinophils % 4.2 %; Hematocrit 28.4 % (37.0-47.0); Hemoglobin 9.3 g/dL (11.5-15.3); Lymphocytes # 1.7 10^3/uL (0.8-4.8); Mean Corpuscular HGB Conc 32.7 g/dL (30.0-36.0); Mean Corpuscular Hemoglobin 29.2 pg (28.0-34.0); Mean Corpuscular Volume 89.3 fl (81-99); Mean Platelet Volume 10.2 fL (7.4-10.4); Neutrophils # 8.86 10^3/uL (1.8-7.7); Neutrophils % 72.2 %; Nucleated Red Blood Cells % 0 %; Platelet Count 770 10^3/cmm (130-400); Red Blood Count 3.18 10^6/uL (4.1-5.3); Red Cell Distribution Width 13.7 % (12.1-15.1); White Blood Count 12.3 10^3/uL (4.0-10.0)
[2021-07-20 05:54] LABS: Chol HDL Ratio 3.25 mg/dL (0.0-4.40); Cholesterol 117 mg/dL (0-200); HDL Cholesterol 36 mg/dL (60-100); LDL Cholesterol Calculated 57 mg/dL (50-129); LDL HDL Ratio 1.58 RATIO (0.00-3.22); Thyroid Stimulating Hormone 0.89 uIU/mL (0.27-4.20); Triglycerides 120 mg/dL (0-150)
[2021-07-20 05:55] LABS: Alanine Aminotransferase < 5 U/L (0-33); Albumin Level 2.7 g/dL (3.5-5.2); Alkaline Phosphatase 171 IU/L (35-105); Anion Gap 19.8 (5-19); Aspartate Amino Transferase 5 U/L (0-32); Blood Urea Nitrogen 20 mg/dL (8-23); Calcium 8.1 mg/dL (8.5-10.5); Carbon Dioxide 18 mmol/L (22-29); Chloride 106 mmol/L (98-107); Globulin 2.7 g/dL (1.3-4.6); Glucose 78 mg/dL (65-115); Osmolality Calculated 289 mOsm/kg (285-295); Potassium 4.8 mmol/L (3.5-5.1); Sodium 139 mmol/L (136-145); Total Bilirubin 0.3 mg/dL (0.15-1.2); Total Protein 5.4 g/dL (6.6-8.7)
[2021-07-20 05:57] LABS: Estmated Average Glucose 137; Hemoglobin A1C 6.4 % (4.0-6.0)
[2021-07-20] MEDS: losartan 50 mg Tablet 25 MG PO (06:21)
[2021-07-20] MEDS: aspirin 81 mg EC Tablet PO (06:21)
[2021-07-20] MEDS: citalopram 20 mg Tablet 40 MG PO (06:23)
--- NOTE | 2021-07-20 06:31 | NUR.SHIFT ---
ultrasound at bedside
[2021-07-20] MEDS: verapamil ER 240 mg Tablet 120 MG PO ×2 (09:28→20:46)
--- NOTE | 2021-07-20 11:43 | PC.CHAP ---
Pastoral Care Encounter/Spiritual Assessment Type of Contact [] Declined format proofreader visit [] Patient/Family/Request visit [] Outpatient visit [] Follow-up visit [] Physician referral [] Code/Alert [] Routine visit [] Staff referral [] Actively dying [] Patient sleeping [] Family support [] [] Out of room [] Palliative care [x] [x] Receiving care in room [] Pre-surgical visit [] Trauma [x] Long length of stay [] ICU visit [] Other: Relational/Emotional Strength [] Patient feels connected with others/family/visitors/staff [x] Distress [] Loneliness/isolation [] Abandonment Spirituality of Patient [] Person of Laila [] Attends Baptism of their Laila [] Believes in Prayer [] Reads Bible or Jehovah'S Witness materials [] There are Spiritual issues to be addressed Dough Sheeter Interventions [] Prayer [] Active listening [] Non-anxious presence [] Spiritual/emotional support [] Crisis/trauma care [] Spiritual counseling [] Bereavement support [] Provided bereavement packet [] Provided Bible/devotional materials [] Provided toy/stuffed animal, coloring book to patient or family member [] Provided Communion [] Anointing/[place] [] Salvation [] Completed spiritual assessment [] Other: Impact on Illness or Injury [] Angry [] Fearful [] Anxious [] Often cries [] Exhaustion [] Unable to work [] Unable to attend scientology [] Unable to walk/stand [] Unable to read [] Unable to drive [] Unable to eat/drink [] Unable to sleep [] Unable to be with family [] Patient intubated [] Other: Summary under staff care not able to communicate Time spent with patient 5 mins
--- NOTE | 2021-07-20 12:58 | PM.PN ---
Subjective Subjective: Interval history: Today she is feeling about the same. Still numbness to left leg. And trying to get up to the commode feels weak due to the multiple conditions. Denies other new symptoms. Vitals/I&O/Wt Last Vital Signs Temp 98.4 F 07/20/21 11:33 Pulse 83 07/20/21 11:33 Resp 16 07/20/21 11:33 BP 135/84 07/20/21 11:33 Pulse Ox 91 07/20/21 11:33 07/19/21 07/20/21 07/20/21 22:59 06:59 14:59 Intake Total 150 / 150 480 / 630 240 / 240 Output Total 300 / 300 Balance 150 / 150 180 / 330 240 / 240 Weight last 48 hrs Weight 64.07 kg Weight 68.039 kg Physical Exam Const: COMMON NORMALS: no acute distress, patient oriented x3 and alert GENERAL APPEARANCE: frail appearing HENMT: COMMON NORMALS: oropharynx normal Neck/C-Spine: COMMON NORMALS: no meningeal signs and no JVD Resp: COMMON NORMALS: normal respiratory effort and clear to auscultation bilaterally AUSCULTATION: clear to auscultation bilaterally Cardio: COMMON NORMALS: no JVD, regular rhythm, S1 normal heart sound present, S2 normal heart sound present and No murmurs present (Cardio) RHYTHM: regular rhythm HEART SOUNDS: S1 normal heart sound present and S2 normal heart sound present GI: COMMON NORMALS: Normal to inspection, nondistended, normoactive bowel sounds present, Soft to palpation and non-tender PALPATION: Yes Soft to palpation Extremity: COMMON NORMALS: no joint enlargement and no pedal edema Neuro: COMMON NORMALS: patient oriented x3 and moves all extremities SENSORIUM/ORIENTATION: Yes alert MENINGEAL SIGNS: Yes no meningeal signs COORDINATION/BALANCE: other (mild dysmetria L arm) SPEECH: speech normal and Other neuro speech findings (Daughter thought noticed slight slurring earlier) SENSORY EXAM: Yes extremities (Diminished sensation mildly, although no level) and Normal double simultaneous stimulation for sensation; No sensory level loss detected MOTOR EXAM: Pronator motor function present pronator drift of left upper extremity and Other motor observations present (4/5 LUE, 3+/5 LLE) COORDINATION: other (mild dysmetria L arm) OTHER: Pupils equal, reactive, no trouble tracking, visual mccarty full to confrontation. Skin: COMMON NORMALS: no rashes or lesions noted GENERAL SKIN EXAM: no rashes or lesions noted Data : 07/20/21 04:42 07/20/21 04:42 A&P Assessment and plan (1) CVA (cerebral vascular accident): Discussed with her and her daughter. Concern of CVA due to atrial fibrillation, although has not been a candidate for anticoagulation. Weakness of left upper and lower extremity, pronator drift and dysmetria of left upper extremity, numbness left lower extremity. In addition chronic pain of the right lower extremity. All combining to her feeling weak with even attempting basic transfers. Less than 50% stenosis on carotid Doppler bilaterally. Follow-up TTE. Monitor on telemetry. Monitor blood pressure, blood pressure will be better, closer to goal, 135/84 currently. Continue aspirin. Started statin. A1c is 6.4. Change to consistent carbohydrate diet. Pending PT, OT, ST. given overall weakness resulting from CVA complicated by DDD, lumbosacral radiculopathy, may benefit from rehab. Follow up with neurology. Consider referral for CHRISTIAN closure device. Status: Acute Qualifiers: CVA mechanism: thrombosis Precerebral and cerebral artery: middle cerebral artery Laterality of affected vessel: right Qualified Code(s): I63.311 - Cerebral infarction due to thrombosis of right middle cerebral artery (2) Atrial fibrillation: Continue aspirin, verapamil. Outpatient follow-up to consider referral for CHRISTIAN closure device. Status: Acute Qualifiers: Atrial fibrillation type: longstanding persistent Qualified Code(s): I48.11 - Longstanding persistent atrial fibrillation (3) Lumbar stenosis with neurogenic claudication: Status: Acute (4) Intervertebral disc disorder with radiculopathy of lumbosacral region: Status: Acute (5) Hypertension: Status: Acute Qualifiers: Hypertension type: essential hypertension Qualified Code(s): I10 - Essential (primary) hypertension Attestations Medical Necessity Statement*: Continue admission for assessment management after acute/subacute new CVA. 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
[2021-07-20] MEDS: HYDROcodone-acetaminophen 10-325 mg Tablet 1 TAB PO ×2 (14:57→20:47)
--- NOTE | 2021-07-20 18:40 | USCV_ITS ---
Vides Evangelina Age: 81 Gender: F : 1940 Exam Date: 07/20/2021 06:27 Ordering Phys: Guerrero Tanner MD Technologist: Exam Location: [facility] [place] Indication: CVA Risk Factors: Previous Vascular Surgery: Right Brachial BP: / Left Brachial BP: / Right Left Velocity (cm/s) Spectral Plaque Velocity (cm/s) Spectral Plaque Syst/Diast Broadening Syst/Diast Broadening 87.65/ 13.75 Prox CCA 71.70 / 19.80 83.25/ 14.85 Mid CCA 67.30 / 13.20 66.70/ 15.40 Distal CCA 63.20 / 13.70 77.75/ 15.40 Prox ICA 59.80 / 11.10 87.10/ 12.10 Mid ICA 67.20 / 14.50 83.80/ 17.60 Distal ICA 70.90 / 12.00 99.20 ECA 82.90 1.00 ICA/CCA 0.99 Antegrade Vertebral Antegrade 63.90/ 11.00 cm/s 52.10/ 12.00 cm/s Tri Subclavian Tri 87.10 139.3 0 FINDINGS Comparison: none available. No significant elevation of systolic or diastolic velocities. Waveforms are normal. Mild plaque in the bifurcations. Antegrade vertebral arteries. CONCLUSIONS Bilateral ICA stenosis less than 50%. Dr. Mary Pena DO (Electronically Signed) Final Date: 20 July 2021 08:30 S
--- NOTE | 2021-07-20 18:40 | USCV_ITS ---
Evangelina Vides Age: 81 Gender: F : 1940 Exam Date: 07/20/2021 06:14 Ordering Phys: Jonel Stanford DO Technologist: Exam Location: [facility] – [place] Indication: CVA BP: 126 / 73 HR: 85 Rhythm: Sinus Technical Quality: Adequate MEASUREMENTS (Male / Female) Normal Values 2D ECHO LV Diastolic Diameter PLAX 4.4 cm 4.2 - 5.9 / 3.9 - 5.3 cm LV Systolic Diameter PLAX 2.3 cm IVS Diastolic Thickness 0.9 cm 0.6 - 1.0 / 0.6 - 0.9 cm IVS Systolic Thickness 1.2 cm LVPW Diastolic Thickness 0.9 cm 0.6 - 1.0 / 0.6 - 0.9 cm LVPW Systolic Thickness 1.2 cm LVOT Diameter 2.0 cm LV Ejection Fraction 2D Teich 80.1 % LV Ejection Fraction MOD 2C 56.2 % LV Ejection Fraction 2C AL 56.0 % LA Diameter 3.7 cm LA Width 4.3 cm LA Height 5.2 cm RA Width 3.8 cm RA Height 3.8 cm Aorta at Sinotubular Diameter 2.3 cm M-MODE LV Diastolic Diameter MM 4.8 cm 4.2 - 5.9 / 3.9 - 5.3 cm LV Systolic Diameter MM 3.3 cm LV Ejection Fraction MM Teich 58.8 % IVS Diastolic Thickness MM 0.8 cm 0.6 - 1.0 / 0.6 - 0.9 cm IVS Systolic Thickness MM 1.4 cm LVPW Diastolic Thickness MM 1.1 cm 0.6 - 1.0 / 0.6 - 0.9 cm LVPW Systolic Thickness MM 1.5 cm RV Diastolic Diameter MM 1.8 cm Aortic Annulus Diameter 3.2 cm LA Ao Ratio MM 1.2 MV E Point Septal Separation 0.3 cm DOPPLER AV Peak Velocity 207.7 cm/s LVOT Peak Velocity 138.0 cm/s AV Area Cont Eq vti 2.2 cm squared AV Area Cont Eq pk 2.1 cm squared MV Area PHT 5.0 cm squared Mitral E to A Ratio 0.6 MV E' Velocity 41.0 cm/s Mitral E to MV E' Ratio 8.0 Mitral E to LV E' Lateral Ratio 6.4 Mitral E to LV E' Septal Ratio 10.8 TR Peak Velocity 150.7 cm/s TR Peak Gradient 9.1 mmHg Right Atrial Pressure 3.0 mmHg Pulmonary Artery Systolic Pressu 12.1 mmHg FINDINGS Left Ventricle Normal left ventricular size, systolic function and wall thickness, with no regional wall motion abnormalities. Left ventricular ejection fraction is estimated at 70 %. Grade I diastolic dysfunction (abnormal relaxation filling pattern), normal to mildly elevated filling pressures. Right Ventricle Normal right ventricular size and systolic function. Right ventricular systolic pressure 12.1 mmHg. Right Atrium Normal right atrial size. Left Atrium Normal left atrial size. Mitral Valve Structurally normal mitral valve. No mitral valve stenosis. Trace mitral valve regurgitation. Aortic Valve Aortic valve not well visualized. No aortic valve stenosis. No aortic valve regurgitation. Tricuspid Valve Structurally normal tricuspid valve. No tricuspid valve stenosis. Trace to mild tricuspid valve regurgitation. Pulmonic Valve Pulmonic valve not well visualized. No pulmonary valve stenosis. Pericardium No pericardial effusion. Aorta Normal size aortic root and proximal ascending aorta. CONCLUSIONS 1. Normal left ventricular size, systolic function and wall thickness, with no regional wall motion abnormalities. Left ventricular ejection fraction is estimated at 70 %. Grade I diastolic dysfunction (abnormal relaxation filling pattern), normal to mildly elevated filling pressures. 2. Normal right ventricular size and systolic function. 3. Trace to mild tricuspid valve regurgitation. 4. No prior similar studies to compare. Argelia German MD (Electronically Signed) Final Date: 20 July 2021 13:13 S
[2021-07-20] MEDS: enoxaparin 40 mg/0.4 mL Syringe SUBCUT (20:46)
[2021-07-20] MEDS: mirtazapine 15 mg Tablet PO (20:47)
[2021-07-21] VITALS (8 sets, daily range): BP systolic 133–166; BP diastolic 55–67; PULSE 72–80; RESP 14–18; TEMP 36.4–36.8; O2SAT 91–96
--- NOTE | 2021-07-21 03:27 | PC.NURSE ---
Sitting up drinking water. No distress. Call light in reach.
[2021-07-21] MEDS: aspirin 81 mg EC Tablet PO (04:59)
[2021-07-21] MEDS: losartan 50 mg Tablet 25 MG PO (04:59)
[2021-07-21] MEDS: citalopram 20 mg Tablet 40 MG PO (05:00)
[2021-07-21 05:01] LABS: Basophils # 0.1 10^3/uL (0.0-0.1); Basophils % 0.7 %; Eosinophils # 0.6 10^3/uL (0.0-0.8); Hematocrit 29.1 % (37.0-47.0); Hemoglobin 9.5 g/dL (11.5-15.3); Lymphocytes # 1.6 10^3/uL (0.8-4.8); Lymphocytes % 13.7 %; Mean Corpuscular HGB Conc 32.6 g/dL (30.0-36.0); Mean Corpuscular Hemoglobin 29.1 pg (28.0-34.0); Mean Corpuscular Volume 89.3 fl (81-99); Mean Platelet Volume 9.8 fL (7.4-10.4); Monocytes # 0.8 10^3/uL (0.2-0.9); Monocytes % 6.8 %; Neutrophils # 8.77 10^3/uL (1.8-7.7); Neutrophils % 73.4 %; Nucleated Red Blood Cells % 0 %; Platelet Count 739 10^3/cmm (130-400); Red Blood Count 3.26 10^6/uL (4.1-5.3); Red Cell Distribution Width 13.5 % (12.1-15.1); White Blood Count 11.9 10^3/uL (4.0-10.0)
[2021-07-21 05:36] LABS: Anion Gap 17.1 (5-19); Blood Urea Nitrogen 17 mg/dL (8-23); Calcium 8.1 mg/dL (8.5-10.5); Carbon Dioxide 20 mmol/L (22-29); Chloride 104 mmol/L (98-107); Glucose 89 mg/dL (65-115); Osmolality Calculated 285 mOsm/kg (285-295); Potassium 4.1 mmol/L (3.5-5.1); Sodium 137 mmol/L (136-145)
[2021-07-21] MEDS: verapamil ER 240 mg Tablet 120 MG PO ×2 (10:39→22:06)
--- NOTE | 2021-07-21 11:26 | P.PN_ITS ---
Subjective Subjective: Interval history: She is feeling dizzy this morning, reports room is somewhat spinning around her, although not clearly so. Symptoms without change with weakness, some clumsiness in the left arm, weakness of left leg. Vitals/I&O/Wt Last Vital Signs Temp 97.8 F 07/21/21 08:00 Pulse 80 07/21/21 08:00 Resp 16 07/21/21 08:00 BP 161/63 07/21/21 08:00 Pulse Ox 95 07/21/21 08:00 07/20/21 07/21/21 07/21/21 22:59 06:59 14:59 Intake Total 120 / 120 Balance 120 / 120 Weight last 48 hrs Weight 64.07 kg Weight 68.039 kg Physical Exam Const: COMMON NORMALS: no acute distress, patient oriented x3 and alert GENERAL APPEARANCE: frail appearing HENMT: COMMON NORMALS: oropharynx normal Neck/C-Spine: COMMON NORMALS: no meningeal signs and no JVD Resp: COMMON NORMALS: normal respiratory effort and clear to auscultation bilaterally AUSCULTATION: clear to auscultation bilaterally Cardio: COMMON NORMALS: no JVD, regular rhythm, S1 normal heart sound present, S2 normal heart sound present and No murmurs present (Cardio) RHYTHM: regular rhythm HEART SOUNDS: S1 normal heart sound present and S2 normal heart sound present GI: COMMON NORMALS: Normal to inspection, nondistended, normoactive bowel sounds present, Soft to palpation and non-tender PALPATION: Yes Soft to palpation Extremity: COMMON NORMALS: no joint enlargement and no pedal edema Neuro: COMMON NORMALS: patient oriented x3 and moves all extremities SENSORIUM/ORIENTATION: Yes alert MENINGEAL SIGNS: Yes no meningeal signs COORDINATION/BALANCE: other (mild dysmetria L arm) SPEECH: speech normal and Other neuro speech findings (Daughter thought noticed slight slurring earlier) SENSORY EXAM: Yes extremities (Diminished sensation mildly, although no level) and Normal double simultaneous stimulation for sensation; No sensory level loss detected MOTOR EXAM: Pronator motor function present pronator drift of left upper extremity and Other motor observations present (4/5 LUE, 3+/5 LLE) COORDINATION: other (mild dysmetria L arm) OTHER: Pupils equal, reactive, no trouble tracking, visual mccarty full to confrontation. Skin: COMMON NORMALS: no rashes or lesions noted GENERAL SKIN EXAM: no rashes or lesions noted Data : 07/21/21 04:44 07/21/21 04:44 A&P Assessment and plan (1) CVA (cerebral vascular accident): TTE obtained, 70% ejection blood pressure today is elevated 161/63. Fraction, grade 1 diastolic dysfunction, normal ventricular size and systolic function. Trace to moderate cuspid regurgitation. Blood pressure this morning higher, 161/63. Follow-up subsequent, continue losartan, verapamil currently but will escalate therapy in case persistent uncontrolled hypertension. Continue aspirin. Statin. With atrial fibrillation, not a candidate for anticoagulation, continue aspirin. Consider referral for CHRISTIAN closure device. Weakness of left upper and lower extremity, pronator drift and dysmetria of left upper extremity, numbness left lower extremity. In addition chronic pain of the right lower extremity. All combining to her feeling weak with even attempting basic transfers. Continues to require moderate assistance. Would benefit from SNF rehabilitation. Case management working on arrangement. A1c is 6.4. Started consistent carbohydrate diet. Less than 50% stenosis on carotid Doppler bilaterally. Follow up with neurology. Status: Acute Qualifiers: CVA mechanism: thrombosis Precerebral and cerebral artery: middle cerebral artery Laterality of affected vessel: right Qualified Code(s): I63.311 - Cerebral infarction due to thrombosis of right middle cerebral artery (2) Atrial fibrillation: Continue aspirin, verapamil. Outpatient follow-up to consider referral for CHRISTIAN closure device. Status: Acute Qualifiers: Atrial fibrillation type: longstanding persistent Qualified Code(s): I48.11 - Longstanding persistent atrial fibrillation (3) Lumbar stenosis with neurogenic claudication: Status: Acute (4) Intervertebral disc disorder with radiculopathy of lumbosacral region: Status: Acute (5) Hypertension: As above, today appears more hypertensive. Continue losartan, verapamil, follow blood pressures, will additionally escalate therapy in case continued uncontrolled hypertension. Status: Acute Qualifiers: Hypertension type: essential hypertension Qualified Code(s): I10 - Essential (primary) hypertension Additional A&P Information Vertigo: Reports feeling dizzy today, some sensation of room spinning about her. Meclizine, Zofran as needed. PT. Attestations Medical Necessity Statement*: Continue admission for assessment management of new CVA, optimization of control of hypertension, symptomatic treatment of associated vertigo, disposition planning and arrangement. Coding Level of Care Code Acute American Sign Language Teacher for Chg Fwd Diagnoses CVA (cerebral vascular accident) I63.311 CVA mechanism: thrombosis Precerebral and cerebral artery: middle cerebral artery Laterality of affected vessel: right Atrial fibrillation I48.11 Atrial fibrillation type: longstanding persistent Lumbar stenosis with neurogenic claudication M48.062 Intervertebral disc disorder with radiculopathy of lumbosacral region M51.17 Hypertension I10 Hypertension type: essential hypertension
--- NOTE | 2021-07-21 11:53 | PC.CHAP ---
Pastoral Care Encounter/Spiritual Assessment Type of Contact [] Declined machine feeder visit [] Patient/Family/Request visit [] Outpatient visit [] Follow-up visit [] Physician referral [] Code/Alert [] Routine visit [] Staff referral [] Actively dying [] Patient sleeping [] Family support [] [] Out of room [] Palliative care [] [] Receiving care in room [] Pre-surgical visit [] Trauma [] Long length of stay [] ICU visit [xx] Other:Isolation Relational/Emotional Strength [] Patient feels connected with others/family/visitors/staff [] Distress [] Loneliness/isolation [] Abandonment Spirituality of Patient [] Person of Laila [] Attends Moravian of their Laila [] Believes in Prayer [] Reads Bible or Baptist materials [] There are Spiritual issues to be addressed Final Inspector Interventions [] Prayer [] Active listening [] Non-anxious presence [] Spiritual/emotional support [] Crisis/trauma care [] Spiritual counseling [] Bereavement support [] Provided bereavement packet [] Provided Bible/devotional materials [] Provided toy/stuffed animal, coloring book to patient or family member [] Provided Communion [] Anointing/[place] [] Salvation [] Completed spiritual assessment [] Other: Impact on Illness or Injury [] Angry [] Fearful [] Anxious [] Often cries [] Exhaustion [] Unable to work [] Unable to attend religious [] Unable to walk/stand [] Unable to read [] Unable to drive [] Unable to eat/drink [] Unable to sleep [] Unable to be with family [] Patient intubated [] Other: Summary Time spent with patient
--- NOTE | 2021-07-21 13:10 | PC.OT ---
Occupational therapy treatment was attempted. Patient was requesting pain medication as she has not had any yet today. Will attempt again later.
[2021-07-21] MEDS: HYDROcodone-acetaminophen 10-325 mg Tablet 1 TAB PO ×2 (13:11→23:51)
[2021-07-21] MEDS: LORazepam 1 mg Tablet PO (14:08)
[2021-07-21] MEDS: gabapentin 100 mg Capsule PO ×2 (14:09→22:06)
[2021-07-21] MEDS: enoxaparin 40 mg/0.4 mL Syringe SUBCUT (21:39)
[2021-07-21] MEDS: mirtazapine 15 mg Tablet PO (22:06)
[2021-07-22] VITALS: BP 152/72; PULSE 73; RESP 17; TEMP 36.9; O2SAT 96
[2021-07-22 04:00] VITALS: BP 145/68; PULSE 76; RESP 18; TEMP 36.6; O2SAT 95
[2021-07-22 05:28] LABS: Basophils # 0.1 10^3/uL (0.0-0.1); Basophils % 1.3 %; Eosinophils # 0.8 10^3/uL (0.0-0.8); Eosinophils % 8.4 %; Hematocrit 27.8 % (37.0-47.0); Lymphocytes # 2.4 10^3/uL (0.8-4.8); Lymphocytes % 24.8 %; Mean Corpuscular HGB Conc 32.4 g/dL (30.0-36.0); Mean Corpuscular Hemoglobin 28.7 pg (28.0-34.0); Mean Corpuscular Volume 88.5 fl (81-99); Mean Platelet Volume 9.8 fL (7.4-10.4); Monocytes # 0.7 10^3/uL (0.2-0.9); Monocytes % 7.3 %; Neutrophils % 57.9 %; Nucleated Red Blood Cells % 0 %; Platelet Count 763 10^3/cmm (130-400); Red Blood Count 3.14 10^6/uL (4.1-5.3); Red Cell Distribution Width 13.5 % (12.1-15.1); White Blood Count 9.7 10^3/uL (4.0-10.0)
[2021-07-22 05:47] LABS: Blood Urea Nitrogen 14 mg/dL (8-23); Calcium 8.1 mg/dL (8.5-10.5); Carbon Dioxide 21 mmol/L (22-29); Chloride 105 mmol/L (98-107); Glucose 76 mg/dL (65-115); Osmolality Calculated 281 mOsm/kg (285-295); Sodium 136 mmol/L (136-145)
[2021-07-22] MEDS: citalopram 20 mg Tablet 40 MG PO (06:21)
[2021-07-22] MEDS: losartan 50 mg Tablet 25 MG PO (06:21)
[2021-07-22] MEDS: aspirin 81 mg EC Tablet PO (06:21)
[2021-07-22 08:00] VITALS: BP 138/67; PULSE 79; RESP 20; TEMP 36.7; O2SAT 93
[2021-07-22] MEDS: gabapentin 100 mg Capsule PO ×3 (08:43→20:31)
[2021-07-22] MEDS: verapamil ER 240 mg Tablet 120 MG PO ×2 (08:43→20:31)
[2021-07-22] MEDS: HYDROcodone-acetaminophen 10-325 mg Tablet 1 TAB PO ×2 (08:48→19:41)
[2021-07-22] MEDS: pantoprazole DR 40 mg Tablet PO (08:48)
--- NOTE | 2021-07-22 09:29 | PC.SOCIAL ---
IMM UPDATED IMM dated and initialed and copy given to patient
[2021-07-22 12:00] VITALS: BP 137/69; PULSE 69; RESP 18; TEMP 36.4; O2SAT 94
--- NOTE | 2021-07-22 12:37 | PM.PN ---
Subjective Subjective: Interval history: She is less dizzy. Feels weak. Otherwise no new symptoms. Vics-kud-eucufck in her feet. Discussed with her regarding gabapentin. Vitals/I&O/Wt Last Vital Signs Temp 97.5 F L 07/22/21 12:00 Pulse 69 07/22/21 12:00 Resp 18 07/22/21 12:00 BP 137/69 07/22/21 12:00 Pulse Ox 94 07/22/21 12:00 07/21/21 07/22/21 07/22/21 22:59 06:59 14:59 Intake Total 240 / 600 240 / 840 Output Total 300 / 450 350 / 800 Balance -60 / 150 -110 / 40 Physical Exam Const: COMMON NORMALS: no acute distress, patient oriented x3 and alert GENERAL APPEARANCE: frail appearing HENMT: COMMON NORMALS: oropharynx normal Neck/C-Spine: COMMON NORMALS: no meningeal signs and no JVD Resp: COMMON NORMALS: normal respiratory effort and clear to auscultation bilaterally AUSCULTATION: clear to auscultation bilaterally Cardio: COMMON NORMALS: no JVD, regular rhythm, S1 normal heart sound present, S2 normal heart sound present and No murmurs present (Cardio) RHYTHM: regular rhythm HEART SOUNDS: S1 normal heart sound present and S2 normal heart sound present GI: COMMON NORMALS: Normal to inspection, nondistended, normoactive bowel sounds present, Soft to palpation and non-tender PALPATION: Yes Soft to palpation Extremity: COMMON NORMALS: no joint enlargement and no pedal edema Neuro: COMMON NORMALS: patient oriented x3 and moves all extremities SENSORIUM/ORIENTATION: Yes alert MENINGEAL SIGNS: Yes no meningeal signs COORDINATION/BALANCE: other (mild dysmetria L arm) SPEECH: speech normal and Other neuro speech findings (Daughter thought noticed slight slurring earlier) SENSORY EXAM: Yes extremities (Diminished sensation mildly, although no level) and Normal double simultaneous stimulation for sensation; No sensory level loss detected MOTOR EXAM: Pronator motor function present pronator drift of left upper extremity and Other motor observations present (4/5 LUE, 3+/5 LLE) COORDINATION: other (mild dysmetria L arm) OTHER: Pupils equal, reactive, no trouble tracking, visual mccarty full to confrontation. Skin: COMMON NORMALS: no rashes or lesions noted GENERAL SKIN EXAM: no rashes or lesions noted Data : 07/22/21 05:09 07/22/21 05:09 A&P Assessment and plan (1) Acute anemia: Hemoglobin trending down. Decreased from 12.2 to 9. Continue aspirin for now. Check Hemoccult. Iron studies. Status: Acute (2) CVA (cerebral vascular accident): Blood pressure is a little bit better, fluctuating, but currently down to 137/69. She is weak, appears to be improving with physical therapy. Daughter is concerned about her going home at the moment as she is only there by herself with her and yesterday patient required quite a bit of assistance. Discussed with her she appears to be improving with therapy, but we will reassess again tomorrow, and if continues to improve, possibly even return home with home health may be an option, but not given due to her having a number of conditions working against her, including CVA, degenerative changes with neuropathy, she is still having significant paresthesias in her feet with difficulty feeling them, principally her at risk of falls. TTE obtained, 70% ejection blood pressure today is elevated 161/63. Fraction, grade 1 diastolic dysfunction, normal ventricular size and systolic function. Trace to moderate cuspid regurgitation. Blood pressure this morning higher, 161/63. Follow-up subsequent, continue losartan, verapamil currently but will escalate therapy in case persistent uncontrolled hypertension. Continue aspirin. Statin. With atrial fibrillation, not a candidate for anticoagulation, continue aspirin. Consider referral for CHRISTIAN closure device. Weakness of left upper and lower extremity, pronator drift and dysmetria of left upper extremity, numbness left lower extremity. In addition chronic pain of the right lower extremity. All combining to her feeling weak with even attempting basic transfers. Continues to require moderate assistance. Would benefit from SNF rehabilitation. Case management working on arrangement. A1c is 6.4. Started consistent carbohydrate diet. Less than 50% stenosis on carotid Doppler bilaterally. Follow up with neurology. Status: Acute Qualifiers: CVA mechanism: thrombosis Precerebral and cerebral artery: middle cerebral artery Laterality of affected vessel: right Qualified Code(s): I63.311 - Cerebral infarction due to thrombosis of right middle cerebral artery (3) Atrial fibrillation: Continue aspirin, verapamil. Outpatient follow-up to consider referral for CHRISTIAN closure device. Status: Acute Qualifiers: Atrial fibrillation type: longstanding persistent Qualified Code(s): I48.11 - Longstanding persistent atrial fibrillation (4) Lumbar stenosis with neurogenic claudication: Status: Acute (5) Intervertebral disc disorder with radiculopathy of lumbosacral region: Status: Acute (6) Hypertension: As above, today appears more hypertensive. Continue losartan, verapamil, follow blood pressures, will additionally escalate therapy in case continued uncontrolled hypertension. Status: Acute Qualifiers: Hypertension type: essential hypertension Qualified Code(s): I10 - Essential (primary) hypertension Additional A&P Information Vertigo: Reports feeling dizzy today, some sensation of room spinning about her. Meclizine, Zofran as needed. PT. Attestations Medical Necessity Statement*: Continue admission versus management of new CVA, acute anemia, lady with weakness, paresthesias of lower extremity elevating her risk of fall due to combination of CVA and degenerative disc disease. Disposition planning and arrangements. Coding Level of Care Code Acute Electrolysis Investigator for [facility] Diagnoses Acute anemia D64.9 CVA (cerebral vascular accident) I63.311 CVA mechanism: thrombosis Precerebral and cerebral artery: middle cerebral artery Laterality of affected vessel: right Atrial fibrillation I48.11 Atrial fibrillation type: longstanding persistent Lumbar stenosis with neurogenic claudication M48.062 Intervertebral disc disorder with radiculopathy of lumbosacral region M51.17 Hypertension I10 Hypertension type: essential hypertension
[2021-07-22 13:32] LABS: Ferritin 228 ng/mL (15-150); Iron 46 ug/dL (37-145); Percent Saturation 37.3 % (20-50); Total Iron Binding Capacity 123 mcg/dl; Unsaturated Iron Binding 77 ug/dL (112-347)
[2021-07-22 15:48] VITALS: BP 135/86; PULSE 73; RESP 16; TEMP 36.8; O2SAT 94
--- NOTE | 2021-07-22 19:45 | PC.NURSE ---
Shift report received from Sapna NASCIMENTO. Patient in bed/awake. Rates pain at a 8/10/ PRN administered. IV patent/SL. No other needs voiced at this time.
[2021-07-22 20:00] VITALS: BP 122/70; PULSE 84; RESP 17; TEMP 36.8; O2SAT 94
[2021-07-22] MEDS: mirtazapine 15 mg Tablet PO (20:30)
[2021-07-22] MEDS: enoxaparin 40 mg/0.4 mL Syringe SUBCUT (20:39)
[2021-07-23] VITALS (7 sets, daily range): BP systolic 112–184; BP diastolic 66–95; PULSE 54–87; RESP 12–20; TEMP 36.3–36.6; O2SAT 91–95
[2021-07-23] MEDS: acetaminophen 325 mg Tablet 650 MG PO (00:32)
--- NOTE | 2021-07-23 00:36 | PC.NURSE ---
patient rates pain at a 05/07/ notified next PRN available at 0140. Also notified no new orders for lorazepam/ may have to address in morning rounds. Charge nurse Brianda VICTOR notified.
[2021-07-23] MEDS: HYDROcodone-acetaminophen 10-325 mg Tablet 1 TAB PO ×4 (01:36→18:54)
[2021-07-23 04:37] LABS: Basophils # 0.2 10^3/uL (0.0-0.1); Basophils % 1.5 %; Eosinophils # 0.6 10^3/uL (0.0-0.8); Eosinophils % 6.2 %; Hematocrit 29.3 % (37.0-47.0); Hemoglobin 9.6 g/dL (11.5-15.3); Lymphocytes # 2.5 10^3/uL (0.8-4.8); Lymphocytes % 25.3 %; Mean Corpuscular HGB Conc 32.8 g/dL (30.0-36.0); Mean Corpuscular Volume 88.5 fl (81-99); Mean Platelet Volume 10.6 fL (7.4-10.4); Monocytes # 0.8 10^3/uL (0.2-0.9); Monocytes % 8.2 %; Neutrophils # 5.84 10^3/uL (1.8-7.7); Neutrophils % 58.5 %; Nucleated Red Blood Cells % 0 %; Platelet Count 756 10^3/cmm (130-400); Red Blood Count 3.31 10^6/uL (4.1-5.3); Red Cell Distribution Width 13.5 % (12.1-15.1)
[2021-07-23 04:56] LABS: Anion Gap 13.9 (5-19); Blood Urea Nitrogen 14 mg/dL (8-23); Carbon Dioxide 22 mmol/L (22-29); Chloride 104 mmol/L (98-107); Glucose 95 mg/dL (65-115); Osmolality Calculated 282 mOsm/kg (285-295); Potassium 3.9 mmol/L (3.5-5.1); Sodium 136 mmol/L (136-145)
[2021-07-23] MEDS: citalopram 20 mg Tablet 40 MG PO (06:18)
[2021-07-23] MEDS: aspirin 81 mg EC Tablet PO (06:18)
[2021-07-23] MEDS: losartan 50 mg Tablet 25 MG PO (06:18)
[2021-07-23] MEDS: pantoprazole DR 40 mg Tablet PO (08:39)
[2021-07-23] MEDS: gabapentin 100 mg Capsule PO ×3 (08:39→20:56)
[2021-07-23] MEDS: verapamil ER 240 mg Tablet 120 MG PO ×2 (08:41→20:56)
[2021-07-23] MEDS: ondansetron 4 MG Tablet PO (15:57)
--- NOTE | 2021-07-23 16:01 | P.PN_ITS ---
Subjective Subjective: Interval history: She is having cramps and tkun-[id number] in both legs. Says she has been concerned regarding being unable to ambulate in the room. Dizziness has resolved. Vitals/I&O/Wt Last Vital Signs Temp 97.4 F L 07/23/21 15:56 Pulse 87 07/23/21 15:56 Resp 19 H 07/23/21 15:56 BP 184/95 07/23/21 15:56 Pulse Ox 94 07/23/21 15:56 07/23/21 07/23/21 07/23/21 06:59 14:59 22:59 Intake Total 472 / 472 Output Total 650 / 650 Balance -178 / -178 Physical Exam Const: COMMON NORMALS: no acute distress, patient oriented x3 and alert GENERAL APPEARANCE: frail appearing HENMT: COMMON NORMALS: oropharynx normal Neck/C-Spine: COMMON NORMALS: no meningeal signs and no JVD Resp: COMMON NORMALS: normal respiratory effort and clear to auscultation bilaterally AUSCULTATION: clear to auscultation bilaterally Cardio: COMMON NORMALS: no JVD, regular rhythm, S1 normal heart sound present, S2 normal heart sound present and No murmurs present (Cardio) RHYTHM: regular rhythm HEART SOUNDS: S1 normal heart sound present and S2 normal heart sound present GI: COMMON NORMALS: Normal to inspection, nondistended, normoactive bowel sounds present, Soft to palpation and non-tender PALPATION: Yes Soft to palpation Extremity: COMMON NORMALS: no joint enlargement and no pedal edema Neuro: COMMON NORMALS: patient oriented x3 and moves all extremities SENSORIUM/ORIENTATION: Yes alert MENINGEAL SIGNS: Yes no meningeal signs COORDINATION/BALANCE: other (mild dysmetria L arm) SPEECH: speech normal and Other neuro speech findings (Daughter thought noticed slight slurring earlier) SENSORY EXAM: Yes extremities (Diminished sensation mildly, although no level) and Normal double simultaneous stimulation for sensation; No sensory level loss detected MOTOR EXAM: Pronator motor function present pronator drift of left upper extremity and Other motor observations present (4/5 LUE, 3+/5 LLE) COORDINATION: other (mild dysmetria L arm) OTHER: Pupils equal, reactive, no trouble tracking, visual mccarty full to confrontation. Skin: COMMON NORMALS: no rashes or lesions noted GENERAL SKIN EXAM: no rashes or lesions noted Data : 12/26/21 03:37 07/23/21 03:37 A&P Assessment and plan (1) CVA (cerebral vascular accident): Blood pressure again elevated today 180/95. Will escalate her losartan. Still impaired mobility, does ambulate with minimal to moderate assistance, however, continue leaning back during the gait. With concern for risk of falls, with underlying degenerative disc disease, bilateral lower extremity paresthesia, would benefit from rehabilitation, will continue with arrangements. She has stated preference for be [facility]. Blood pressure is a little bit better, fluctuating, but currently down to 137/69. She is weak, appears to be improving with physical therapy. Daughter is concerned about her going home at the moment as she is only there by herself with her and yesterday patient required quite a bit of assistance. Discussed with her she appears to be improving with therapy, but we will reassess again tomorrow, and if continues to improve, possibly even return home with home health may be an option, but not given due to her having a number of conditions working against her, including CVA, degenerative changes with neuropathy, she is still having significant paresthesias in her feet with difficulty feeling them, principally her at risk of falls. TTE obtained, 70% ejection blood pressure today is elevated 161/63. Fraction, grade 1 diastolic dysfunction, normal ventricular size and systolic function. Trace to moderate cuspid regurgitation. Blood pressure this morning higher, 161/63. Follow-up subsequent, continue losartan, verapamil currently but will escalate therapy in case persistent uncontrolled hypertension. Continue aspirin. Statin. With atrial fibrillation, not a candidate for anticoagulation, continue aspirin. Consider referral for CHRISTIAN closure device. Weakness of left upper and lower extremity, pronator drift and dysmetria of left upper extremity, numbness left lower extremity. In addition chronic pain of the right lower extremity. All combining to her feeling weak with even attempting basic transfers. Continues to require moderate assistance. Would benefit from SNF rehabilitation. Case management working on arrangement. A1c is 6.4. Started consistent carbohydrate diet. Less than 50% stenosis on carotid Doppler bilaterally. Follow up with neurology. Status: Acute Qualifiers: CVA mechanism: thrombosis Precerebral and cerebral artery: middle cerebral artery Laterality of affected vessel: right Qualified Code(s): I63.311 - Cerebral infarction due to thrombosis of right middle cerebral artery (2) Acute anemia: Hemoglobin appears stated, currently 9.6. Hemoglobin trending down. Decreased from 12.2 to 9. Continue aspirin for now. Check Hemoccult. Iron studies. Status: Acute (3) Atrial fibrillation: Continue aspirin, verapamil. Outpatient follow-up to consider referral for CHRISTIAN closure device. Status: Inactive Qualifiers: Atrial fibrillation type: longstanding persistent Qualified Code(s): I48.11 - Longstanding persistent atrial fibrillation (4) Lumbar stenosis with neurogenic claudication: Status: Acute (5) Intervertebral disc disorder with radiculopathy of lumbosacral region: Status: Acute (6) Hypertension: As above, today appears more hypertensive. Continue losartan, verapamil, follow blood pressures, will additionally escalate therapy in case continued uncontrolled hypertension. Status: Acute Qualifiers: Hypertension type: essential hypertension Qualified Code(s): I10 - Essential (primary) hypertension Additional A&P Information Vertigo: Reports feeling dizzy today, some sensation of room spinning about her. Meclizine, Zofran as needed. PT. Attestations Medical Necessity Statement*: Continue admission for optimization of hypertension control, disposition planning management due to impaired mobility, risk of falls, pending prior authorization to [facility] [facility] given additional weakness after CVA with underlying DDD and lumbosacral radiculopathy. Coding Level of Care Code Acute Twist Maker for Leah Mchugh Diagnoses CVA (cerebral vascular accident) I63.311 CVA mechanism: thrombosis Precerebral and cerebral artery: middle cerebral artery Laterality of affected vessel: right Acute anemia D64.9 Atrial fibrillation I48.11 Atrial fibrillation type: longstanding persistent Lumbar stenosis with neurogenic claudication M48.062 Intervertebral disc disorder with radiculopathy of lumbosacral region M51.17 Hypertension I10 Hypertension type: essential hypertension
--- NOTE | 2021-07-23 19:25 | PC.NURSE ---
Shift report received from Emmie Khan. Patient awake in bed/daughter at bedside. Rates pain at 04/07/ PRN administered recently. IV patent/SL. No needs voiced at this time.
[2021-07-23] MEDS: enoxaparin 40 mg/0.4 mL Syringe SUBCUT (20:55)
[2021-07-23] MEDS: mirtazapine 15 mg Tablet PO (20:56)
--- NOTE | 2021-07-23 21:05 | PC.NURSE ---
Patient rates pain at a 7/10. Patient aware next PRN available at 0100.
--- NOTE | 2021-07-23 23:19 | PC.NURSE ---
Patient resting at this time. No s/s of pain or discomfort.
[2021-07-24] VITALS (7 sets, daily range): BP systolic 113–157; BP diastolic 63–79; PULSE 74–98; RESP 15–17; TEMP 36.2–36.8; O2SAT 91–98
[2021-07-24] MEDS: HYDROcodone-acetaminophen 10-325 mg Tablet 1 TAB PO ×5 (01:19→23:25)
--- NOTE | 2021-07-24 04:08 | PC.NURSE ---
patient resting at this time/ no s/s of pain or discomfort
[2021-07-24] MEDS: losartan 50 mg Tablet PO ×2 (05:56→11:50)
[2021-07-24] MEDS: citalopram 20 mg Tablet 40 MG PO (05:56)
[2021-07-24] MEDS: aspirin 81 mg EC Tablet PO (05:56)
[2021-07-24] MEDS: LORazepam 1 mg Tablet PO ×2 (06:04→23:25)
[2021-07-24 06:28] LABS: Basophils # 0.1 10^3/uL (0.0-0.1); Basophils % 1.4 %; Eosinophils # 0.4 10^3/uL (0.0-0.8); Eosinophils % 4.1 %; Hematocrit 32.6 % (37.0-47.0); Hemoglobin 10.6 g/dL (11.5-15.3); Lymphocytes # 2.2 10^3/uL (0.8-4.8); Lymphocytes % 23.6 %; Mean Corpuscular HGB Conc 32.5 g/dL (30.0-36.0); Mean Corpuscular Hemoglobin 29.5 pg (28.0-34.0); Mean Corpuscular Volume 90.8 fl (81-99); Mean Platelet Volume 10.5 fL (7.4-10.4); Monocytes # 0.7 10^3/uL (0.2-0.9); Monocytes % 7.1 %; Neutrophils # 5.85 10^3/uL (1.8-7.7); Neutrophils % 63.3 %; Nucleated Red Blood Cells % 0 %; Platelet Count 807 10^3/cmm (130-400); Red Blood Count 3.59 10^6/uL (4.1-5.3); Red Cell Distribution Width 13.7 % (12.1-15.1); White Blood Count 9.3 10^3/uL (4.0-10.0)
[2021-07-24 06:43] LABS: Anion Gap 12.8 (5-19); Blood Urea Nitrogen 12 mg/dL (8-23); Calcium 8.3 mg/dL (8.5-10.5); Carbon Dioxide 24 mmol/L (22-29); Chloride 103 mmol/L (98-107); Glucose 89 mg/dL (65-115); Magnesium 1.7 mg/dL (1.7-2.3); Osmolality Calculated 281 mOsm/kg (285-295); Potassium 3.8 mmol/L (3.5-5.1); Sodium 136 mmol/L (136-145)
[2021-07-24] MEDS: verapamil ER 240 mg Tablet 120 MG PO ×2 (08:01→21:51)
[2021-07-24] MEDS: pantoprazole DR 40 mg Tablet PO (08:01)
[2021-07-24] MEDS: gabapentin 100 mg Capsule PO ×3 (08:01→21:51)
--- NOTE | 2021-07-24 11:48 | PM.PN ---
Subjective Subjective: Interval history: Hospital course, labs appreciated. Family at bedside. Denies any nausea, vomiting, headache. States she is feeling little jittery because her home nurse pills have not been started states she takes hydrocodone 10 mg 4 times a day. Denies any further weakness. Working with physical therapy. Waiting for discharge. Vitals/I&O/Wt Last Vital Signs Temp 98.2 F 07/24/21 07:40 Pulse 98 07/24/21 11:22 Resp 16 07/24/21 11:22 BP 130/71 07/24/21 11:22 Pulse Ox 95 07/24/21 11:22 07/23/21 07/24/21 07/24/21 22:59 06:59 14:59 Intake Total 240 / 712 120 / 120 Output Total 700 / 1350 Balance 240 / 62 -700 / -638 120 / 120 Data : 07/24/21 05:25 07/24/21 05:25 A&P Assessment and plan (1) CVA (cerebral vascular accident): Appreciate PT/OT/ST evaluation. Continue with PT/OT. Most likely thromboembolic in setting of atrial fibrillation. Continue with aspirin 81 mg daily. Lipid panel appreciated. Atorvastatin 20 mg daily. HbA1c 6.4. Echocardiogram done shows an EF of 70% grade 1 diastolic dysfunction with normal RVSP. Carotid Dopplers appreciated. Status: Acute Qualifiers: CVA mechanism: thrombosis Precerebral and cerebral artery: middle cerebral artery Laterality of affected vessel: right Qualified Code(s): I63.311 - Cerebral infarction due to thrombosis of right middle cerebral artery (2) Acute anemia: Stable. Hemoccult awaited. Oral iron supplementation. Status: Acute (3) Atrial fibrillation: Continue rate control with verapamil 120 mg twice daily. Continue 81 mg daily for anticoagulation. Not a candidate for full dose anticoagulation given history of recurrent falls. Status: Inactive Qualifiers: Atrial fibrillation type: longstanding persistent Qualified Code(s): I48.11 - Longstanding persistent atrial fibrillation (4) Lumbar stenosis with neurogenic claudication: Status: Acute (5) Intervertebral disc disorder with radiculopathy of lumbosacral region: Status: Acute (6) Hypertension: Goal blood pressure 140/90 mmHg. Continue with home dose of verapamil. Increase losartan to home dose 100 mg oral daily. Status: Acute Qualifiers: Hypertension type: essential hypertension Qualified Code(s): I10 - Essential (primary) hypertension (7) Type 2 diabetes mellitus: New diagnosis. A1c 6.4. Start on insulin at low-dose protocol. Most likely will need to be discharged on low-dose Metformin 500 mg twice daily. Status: Acute Additional A&P Information Vertigo: Reports feeling dizzy today, some sensation of room spinning about her. Meclizine, Zofran as needed. PT. Restart multiple home med medications including Lexapro, mirtazapine, [place] at home dose. DNR/DNI. Protonix for PUD prophylaxis. Discharge planning: Plan to discharge to [facility] once prior authorization has been achieved. Attestations Medical Necessity Statement*: Requires further hospitalization for management of CVA while safe discharge planning is sought as patient is at high risk of fall and recurrent strokes. Time Spent in Patient Care: Greater than 35 minutes (>than 50% of time spent in counselling and/or direct pt care on unit). Coding Level of Care Code Acute [employer] [facility] Diagnoses CVA (cerebral vascular accident) I63.311 CVA mechanism: thrombosis Precerebral and cerebral artery: middle cerebral artery Laterality of affected vessel: right Acute anemia D64.9 Atrial fibrillation I48.11 Atrial fibrillation type: longstanding persistent Lumbar stenosis with neurogenic claudication M48.062 Intervertebral disc disorder with radiculopathy of lumbosacral region M51.17 Hypertension I10 Hypertension type: essential hypertension Type 2 diabetes mellitus E11.9
[2021-07-24 12:11] LABS: Glucose Point of Care 110 mg/dL (70-110)
--- NOTE | 2021-07-24 12:15 | PC.SOCIAL ---
IMM UPDATED IMM dated and initialed copy made and given to patient
[2021-07-24 17:11] LABS: Glucose Point of Care 107 mg/dL (70-110)
--- NOTE | 2021-07-24 19:39 | PC.NURSE ---
Shift report received from Emmie VICTOR. Patient in bed awake/daughter at bedside. Rates pain at a 8/10. Patient aware next PRN available at 0001. No needs voiced at this time.
[2021-07-24 21:13] LABS: Glucose Point of Care 108 mg/dL (70-110)
[2021-07-24] MEDS: enoxaparin 40 mg/0.4 mL Syringe SUBCUT (21:50)
[2021-07-24] MEDS: mirtazapine 15 mg Tablet PO (21:51)
[2021-07-25] VITALS: BP 132/72; PULSE 93; RESP 17; TEMP 36.3; O2SAT 94
--- NOTE | 2021-07-25 03:26 | PC.NURSE ---
patient sleeping at this time/ no s/s of pain or discomfort
[2021-07-25 04:00] VITALS: BP 117/70; PULSE 69; RESP 16; TEMP 36.8; O2SAT 96
[2021-07-25 06:49] VITALS: BP 117/70
[2021-07-25] MEDS: losartan 50 mg Tablet 100 MG PO (06:49)
[2021-07-25] MEDS: aspirin 81 mg EC Tablet PO (06:50)
[2021-07-25] MEDS: citalopram 20 mg Tablet 40 MG PO (06:50)
[2021-07-25 07:03] LABS: Basophils # 0.2 10^3/uL (0.0-0.1); Basophils % 1.8 %; Eosinophils # 0.4 10^3/uL (0.0-0.8); Eosinophils % 4.6 %; Hematocrit 29.6 % (37.0-47.0); Hemoglobin 9.4 g/dL (11.5-15.3); Lymphocytes # 2.4 10^3/uL (0.8-4.8); Lymphocytes % 27.1 %; Mean Corpuscular HGB Conc 31.8 g/dL (30.0-36.0); Mean Corpuscular Hemoglobin 28.5 pg (28.0-34.0); Mean Corpuscular Volume 89.7 fl (81-99); Mean Platelet Volume 10.2 fL (7.4-10.4); Monocytes # 0.7 10^3/uL (0.2-0.9); Monocytes % 8.3 %; Neutrophils # 5.15 10^3/uL (1.8-7.7); Neutrophils % 57.5 %; Nucleated Red Blood Cells % 0 %; Platelet Count 738 10^3/cmm (130-400); Red Cell Distribution Width 13.5 % (12.1-15.1); White Blood Count 8.9 10^3/uL (4.0-10.0)
[2021-07-25 07:23] LABS: Anion Gap 15.9 (5-19); Blood Urea Nitrogen 14 mg/dL (8-23); Carbon Dioxide 21 mmol/L (22-29); Chloride 104 mmol/L (98-107); Glucose 84 mg/dL (65-115); Osmolality Calculated 284 mOsm/kg (285-295); Potassium 3.9 mmol/L (3.5-5.1); Sodium 137 mmol/L (136-145)
[2021-07-25] MEDS: HYDROcodone-acetaminophen 10-325 mg Tablet 1 TAB PO ×2 (07:25→13:29)
[2021-07-25 07:36] VITALS: BP 165/96; PULSE 93; RESP 16; TEMP 36.5; O2SAT 97
[2021-07-25] MEDS: verapamil ER 240 mg Tablet 120 MG PO (08:51)
[2021-07-25] MEDS: gabapentin 100 mg Capsule PO (08:51)
[2021-07-25] MEDS: pantoprazole DR 40 mg Tablet PO (08:51)
[2021-07-25] MEDS: ondansetron 4 MG Tablet PO (08:59)
[2021-07-25] MEDS: meclizine 25 mg tablet PO (08:59)
--- NOTE | 2021-07-25 10:05 | P.DS_ITS ---
Discharge Providers Date of Admission: 07/19/21 16:25 Date of Discharge: July 25, 2021 Attending Provider at Admission: Guerrero Tanner Attending Provider at Discharge: Horace Fuentes MD Primary Care Provider: Theodora Neal MD Diagnoses at Discharge Discharge Diagnosis (1) CVA (cerebral vascular accident): Status: Acute Qualifiers: CVA mechanism: thrombosis Precerebral and cerebral artery: middle cerebral artery Laterality of affected vessel: right Qualified Code(s): I63.311 - Cerebral infarction due to thrombosis of right middle cerebral artery (2) Acute anemia: Status: Acute (3) Atrial fibrillation: Status: Inactive Qualifiers: Atrial fibrillation type: longstanding persistent Qualified Code(s): I48.11 - Longstanding persistent atrial fibrillation (4) Lumbar stenosis with neurogenic claudication: Status: Acute (5) Intervertebral disc disorder with radiculopathy of lumbosacral region: Status: Acute (6) Hypertension: Status: Acute Qualifiers: Hypertension type: essential hypertension Qualified Code(s): I10 - Essential (primary) hypertension (7) Type 2 diabetes mellitus: Status: Acute Reason for Visit Reason for Visit: EXTREMITY NUMBNESS Hospital Course Hospital Course As per H&P. Pleasant 81-year-old lady is accompanied in ER by her daughter, with history of atrial fibrillation, degenerative disc disease, lumbosacral radiculopathy, frequent falls, due to which was not on anticoagulation complaint of numbness in her feet and legs, with new left side upper and lower extremity weakness, as well as her arm flopping . Her daughter noticed perhaps slightly slurred speech. All of this reportedly started on Saturday. She was referred for evaluation by CT of the head yesterday which showed 1.5 cm area of decreased attenuation in the right thalamus suspicious of subacute or acute infarct. No bleed or mass-effect. Trace amount of fluid in the right mastoids. She came in today due to persistence of the symptoms and new CVA on imaging. Hospital course. Patient is admitted to the hospital for further evaluation and management of stroke. Patient underwent physical therapy and speech therapy. Patient had occasional episodes of dizziness most likely secondary to new CVA which was treated with meclizine. During hospitalization she was found to have high blood pressures for which her antihypertensives were adjusted. Given her severe impaired mobility, does ambulate with minimal to moderate assistance with unstable gait patient was found to be at high risk of recurrent falls hence safe discharge plan were discussed with the patient and patient's family and they were agreeable for SNF placement. Patient was also found to have atrial fibrillation for which she is not a good candidate for anticoagulation given recurrent falls and CVA. Patient should be considered for referral for CHRISTIAN closure. Patient is been discharged in hemodynamically stable condition with advised to follow-up with a primary care provider within next 1 week. She is advised to have blood pressure diary at home by checking blood pressure twice daily and for further adjustment of antihypertensives. She has been discharged to SNF. Physical Exam Const: COMMON NORMALS: no acute distress, patient oriented x3 and alert GENERAL APPEARANCE: frail appearing HENMT: COMMON NORMALS: oropharynx normal Neck/C-Spine: COMMON NORMALS: no meningeal signs and no JVD Resp: COMMON NORMALS: normal respiratory effort and clear to auscultation bilaterally AUSCULTATION: clear to auscultation bilaterally Cardio: COMMON NORMALS: no JVD, regular rhythm, S1 normal heart sound present, S2 normal heart sound present and No murmurs present (Cardio) RHYTHM: regular rhythm HEART SOUNDS: S1 normal heart sound present and S2 normal heart sound present GI: COMMON NORMALS: Normal to inspection, nondistended, normoactive bowel sounds present, Soft to palpation and non-tender PALPATION: Yes Soft to palpation Extremity: COMMON NORMALS: no joint enlargement and no pedal edema Neuro: COMMON NORMALS: patient oriented x3 and moves all extremities SENSORIUM/ORIENTATION: Yes alert MENINGEAL SIGNS: Yes no meningeal signs COORDINATION/BALANCE: other (mild dysmetria L arm) SPEECH: speech normal and Other neuro speech findings (Daughter thought noticed slight slurring earlier) SENSORY EXAM: Yes extremities (Diminished sensation mildly, although no level) and Normal double simultaneous stimulation for sensation; No sensory level loss detected MOTOR EXAM: Pronator motor function present pronator drift of left upper extremity and Other motor observations present (4/5 LUE, 3+/5 LLE) COORDINATION: other (mild dysmetria L arm) OTHER: Pupils equal, reactive, no trouble tracking, visual mccarty full to confrontation. Skin: COMMON NORMALS: no rashes or lesions noted GENERAL SKIN EXAM: no rashes or lesions noted Discharge Data Data Completed and Pending: Completed Studies During Hospitalization Category Date Time Status XR chest 1V caesar ble [id number] Stat Exams 07/19/21 14:22 Completed CV carotid duplex BI* [id number] Routine Ultrasound 07/20/21 18:40 Completed CV. echo complete * [id number] Routine Ultrasound 07/20/21 18:40 Completed Pending at discharge Category Date Time Status Basic Metabolic P sabine AM LABS Lab 07/26/21 04:00 Ordered COVID OZH [Nunez virus PCR] Routine Lab 07/25/21 09:15 Received Complete Blood Co unt w/Auto AM LABS Lab 07/26/21 04:00 Ordered Immunochemical Fe ann marie OCB Routine Lab 07/22/21 08:33 Uncollected Labs from last 24 hours 07/25/21 07/25/21 07/25/21 09:15 06:28 06:28 WBC 8.9 RBC 3.30 L Hgb 9.4 L Hct 29.6 L MCV 89.7 MCH 28.5 MCHC 31.8 RDW 13.5 Plt Count 738 H MPV 10.2 Neut % (Auto) 57.5 Lymph % (Auto) 27.1 [place] % (Auto) 8.3 Eos % (Auto) 4.6 Baso % (Auto) 1.8 Neut # (Auto) 5.15 Lymph # (Auto) 2.4 [place] # (Auto) 0.7 Eos # (Auto) 0.4 Baso # (Auto) 0.2 H Nucleated RBC % (a uto) 0 Nucleated RBCs # 0.0 Sodium 137 Potassium 3.9 Chloride 104 Carbon Dioxide 21 L Anion Gap 15.9 BUN 14 Creatinine 0.6 GFR Calculation Not Reportable Glucose 84 POC Glucose Calculated Osmolal ity 284 L Calcium 8.0 L Coronavirus 229E ( PCR) Pending SARS-CoV-2 (PCR) Pending 07/24/21 07/24/21 07/24/21 20:25 16:49 12:09 WBC RBC Hgb Hct MCV MCH MCHC RDW Plt Count MPV Neut % (Auto) Lymph % (Auto) [place] % (Auto) Eos % (Auto) Baso % (Auto) Neut # (Auto) Lymph # (Auto) [place] # (Auto) Eos # (Auto) Baso # (Auto) Nucleated RBC % (a uto) Nucleated RBCs # Sodium Potassium Chloride Carbon Dioxide Anion Gap BUN Creatinine GFR Calculation Glucose POC Glucose 108 107 110 Calculated Osmolal ity Calcium Coronavirus 229E ( PCR) SARS-CoV-2 (PCR) Addt'l Data from Hospital Stay: Laboratory Results WBC 8.9 10^3/uL (4.0- 10.0) 07/25/21 06:28 RBC 3.30 10^6/uL (4.1 -5.3) L 07/25/21 06:28 Hgb 9.4 g/dL (11.5-15 .3) L 07/25/21 06:28 Hct 29.6 % (37.0-47.0 ) L 07/25/21 06:28 MCV 89.7 fl (81-99) 07/25/21 06: MCH 28.5 pg (28.0-34. 0) 07/25/21 06:28 MCHC 31.8 g/dL (30.0-3 6.0) 07/25/21 06:28 RDW 13.5 % (12.1-15.1 ) 07/25/21 06:28 Plt Count 738 10^3/cmm (130 -400) H 07/25/21 06:28 MPV 10.2 fL (7.4-10.4 ) 07/25/21 06:28 Neut % (Auto) 57.5 % 07/25/21 06:28 Lymph % (Auto) 27.1 % 07/25/21 06:28 [place] % (Auto) 8.3 % 07/25/21 06:28 Eos % (Auto) 4.6 % 07/25/21 06:28 Baso % (Auto) 1.8 % 07/25/21 06:28 Neut # (Auto) 5.15 10^3/uL (1.8 -7.7) 07/25/21 06:28 Lymph # (Auto) 2.4 10^3/uL (0.8- 4.8) 07/25/21 06:28 [place] # (Auto) 0.7 10^3/uL (0.2- 0.9) 07/25/21 06:28 Eos # (Auto) 0.4 10^3/uL (0.0- 0.8) 07/25/21 06:28 Baso # (Auto) 0.2 10^3/uL (0.0- 0.1) H 07/25/21 06:28 Nucleated RBC % (a uto) 0 % 07/25/21 06:28 Nucleated RBCs # 0.0 /100WBC 07/25/21 06:28 Sodium 137 mmol/L (136-1 45) 07/25/21 06:28 Potassium 3.9 mmol/L (3.5-5 .1) 07/25/21 06:28 Chloride 104 mmol/L (98-10 7) 07/25/21 06:28 Carbon Dioxide 21 mmol/L (22-29) L 07/25/21 06:28 Anion Gap 15.9 (5-19) 07/25/21 06:28 BUN 14 mg/dL (8-23) 07/25/21 06:28 Creatinine 0.6 mg/dL (0.5-0. 9) 07/25/21 06:28 GFR Calculation Not Reportable 07/25/21 06:28 Glucose 84 mg/dL (65-115) 07/25/21 06:28 POC Glucose 108 mg/dL (70-110 ) 07/24/21 20:25 Estimat Average Gl ucose 137 07/20/21 04:42 Hemoglobin A1c 6.4 % (4.0-6.0) H 07/20/21 04:42 Calculated Osmolal ity 284 mOsm/kg (285- 295) L 07/25/21 06:28 Calcium 8.0 mg/dL (8.5-10 .5) L 07/25/21 06:28 Magnesium 1.7 mg/dL (1.7-2. 3) 07/24/21 05:25 Iron 46 ug/dL (37-145) 07/22/21 05:09 TIBC 123 mcg/dl 07/22/21 05:09 % Saturation 37.3 % (20-50) 07/22/21 05:09 Unsat Iron Binding 77 ug/dL (112-347 ) L 07/22/21 05:09 Ferritin 228 ng/mL (15-150 ) H 07/22/21 05:09 Total Bilirubin 0.3 mg/dL (0.15-1 .2) 07/20/21 04:42 AST 5 U/L (0-32) 07/20/21 04:42 ALT < 5 U/L (0-33) 07/20/21 04:42 Alkaline Phosphata se 171 IU/L (35-105) H 07/20/21 04:42 Total Protein 5.4 g/dL (6.6-8.7 ) L 07/20/21 04:42 Albumin 2.7 g/dL (3.5-5.2 ) L 07/20/21 04:42 Globulin 2.7 g/dL (1.3-4.6 ) 07/20/21 04:42 Triglycerides 120 mg/dL (0-150) 07/20/21 04:42 Cholesterol 117 mg/dL (0-200) 07/20/21 04:42 LDL Cholesterol, C alc 57 mg/dL (50-129) 07/20/21 04:42 HDL Cholesterol 36 mg/dL (60-100) L 07/20/21 04:42 LDL/HDL Ratio 1.58 RATIO (0.00- 3.22) 07/20/21 04:42 Cholesterol/HDL Ra johnny 3.25 mg/dL (0.0-4 .40) 07/20/21 04:42 TSH 0.89 uIU/mL (0.27 -4.20) 07/20/21 04:42 Impressions Chest X-Ray 07/19/21 14:22 IMPRESSION: No acute findings. Vitals: Last Vital Signs Temp 97.7 F 07/25/21 07:36 Pulse 93 07/25/21 07:36 Resp 16 07/25/21 07:36 BP 165/96 07/25/21 07:36 Pulse Ox 97 07/25/21 07:36 Discharge Plan Discharge Patient Disposition: Xfer SNF Condition: Stable Prescriptions: New pantoprazole 40 mg Tablet,Delayed Release (Dr/Ec) 40 mg PO DAILY Qty: 14 RF: 0 gabapentin 100 mg Capsule 100 mg PO TID 30 Days Qty: 90 RF: 0 Continued nitroglycerin [Nitrostat] 0.4 mg tablet, sublingual 0.4 mg SUBLINGUAL Q5M PRN (Reason: chest pain) Qty: 25 RF: 3 verapamil 120 mg tablet extended release 120 mg PO BID 30 Days Qty: 180 RF: 3 lorazepam 1 mg tablet 1 mg PO BID PRN (Reason: anxiety) 60 Days Qty: 120 RF: 2 hydrocodone-acetaminophen 10-325 mg tablet 1 tab PO Q6H PRN (Reason: pain) 30 Days Qty: 120 RF: 0 Tylenol Ex Str Rapid Release 500 mg Tablet 500 - 1,000 mg PO Q4H PRN (Reason: Pain) RF: 0 Pepto-Bismol 262 mg/15 mL Suspension 262 mg PO PRN RF: 0 citalopram 40 mg tablet 40 mg PO QAM RF: 0 aspirin 81 mg tablet,delayed release (DR/EC) 81 mg PO QAM RF: 0 tacrolimus 0.1 % ointment See Rx Instructions .ROUTE .COMPLEX RF: 0 mirtazapine 15 mg tablet 15 mg PO BEDTIME RF: 0 losartan 100 mg tablet 100 mg PO QAM RF: 0 Discharge Orders: Discharge Order (Routine); Ordered 07/25/21 Ordered By: Horace Fuentes Referrals: [facility] [Outside] Shasha Ahmadi MD [Physician] - 2 weeks Theodora Neal MD [Primary Care Provider] - 4-7 days Discharge Diet: Cardiac and Diabetic Discharge Activity: Resume usual activity and Increase activity as tolerated Patient Instructions: Opioid Safety Activity Restrictions/Additional Instructions: Please follow-up with your primary care provider within next 1 week. Please follow-up with neurologist within next 2 weeks. Please take diabetic diet going forward given your A1c of 6.4. Please check blood pressure twice daily and maintain a blood pressure diary for further adjustment of antihypertensive. Patient should be considered for a referral for CHRISTIAN closure device. Discharge Attestations Time Spent in Discharge Care*: greater than 30 min Specific Discharge Activities: educating patient, educating and/or supporting family/caregiver, discussing with case resolution specialist/social workers/dc planners, documenting/other paperwork and evaluating patient/reviewing data Status at Discharge: Cognitive status at discharge: mildly impaired cognition , Behavioral status at discharge: cooperative , Functional status at discharge: uses cane/walker Overall status at discharge: patient has a new baseline Quality Metrics Clinical Quality Measures During this hospital stay, did patient experience: Stroke Contraindication to Antithrombotic: Antithrombotic prescribed Contraindication to Anticoagulation: Medical contraindication Contraindication to Statin: Statin prescribed Contraindication to antithrombotic day 2: Medical contraindication Contraindication to tPA: Treatment not indicated Coding Level of Care Code Acute Chg FW DC note Diagnoses CVA (cerebral vascular accident) I63.311 CVA mechanism: thrombosis Precerebral and cerebral artery: middle cerebral artery Laterality of affected vessel: right Acute anemia D64.9 Atrial fibrillation I48.11 Atrial fibrillation type: longstanding persistent Lumbar stenosis with neurogenic claudication M48.062 Intervertebral disc disorder with radiculopathy of lumbosacral region M51.17 Hypertension I10 Hypertension type: essential hypertension Type 2 diabetes mellitus E11.9
--- NOTE | 2021-07-25 12:14 | PC.NURSE ---
Report called to PILY Olivares at [facility]. All questions answered at this time.
[2021-07-25 12:15] LABS: Glucose Point of Care 119 mg/dL (70-110)
[2021-07-25 12:17] VITALS: BP 120/53; PULSE 76; RESP 16; TEMP 36.3; O2SAT 93
--- NOTE | 2021-07-25 13:39 | PC.NURSE ---
Patient discharged with glasses and robe on her person to be transported to [facility] by [facility].
--- NOTE | 2021-07-25 13:46 | PC.NURSE ---
Call placed to PILY Olivares at [facility] to notify her patient received Hydrocodone at 1329 prior to leaving with transport.
[2021-07-25 16:45] LABS: Glucose Point of Care 94 mg/dL (70-110)
[2021-07-27 03:07] LABS: Quest SARS-CoV-2 RNA NOT DETECTED (NOT DETECTED)
== END 2021-07-25 13:40 | disposition skilled nursing facility (03) ==
LOC: ER 16:46 → MEDSURG 18:19
PROVIDERS: Admitting Provider Internal Medicine; Emergency Provider Family Medicine; PCP Family Medicine; Visit Provider Student in an Organized Health Care Education/Training Program
DX: I63.311 Cerebral infarction due to thrombosis of right middle cerebral artery (principal); I48.11 Longstanding persistent atrial fibrillation; D64.9 Anemia, unspecified; M48.062 Spinal stenosis, lumbar region with neurogenic claudication; M51.17 Intervertebral disc disorders with radiculopathy, lumbosacral region; I10 Essential (primary) hypertension; E11.9 Type 2 diabetes mellitus without complications; Z91.81 History of falling; Z66 Do not resuscitate; Z87.11 Personal history of peptic ulcer disease; I65.23 Occlusion and stenosis of bilateral carotid arteries; Z79.82 Long term (current) use of aspirin; F41.9 Anxiety disorder, unspecified; I25.10 Atherosclerotic heart disease of native coronary artery without angina pectoris; E78.00 Pure hypercholesterolemia, unspecified; Z82.49 Family history of ischemic heart disease and other diseases of the circulatory system; R53.1 Weakness
CPT/HCPCS: 36415; 36416; 70450; 71045; 80048; 80053; 80061; 82274; 82728; 82962; 83036; 83540; 83550; 83735; 84443; 85025; 87635; 92507; 92523; 92526; 92610; 93005; 93306; 93880; 96372; 97110; 97116; 97161; 97165; 97530; 97535; 99285; G0378; J1650; J8597; Q0162

== ENCOUNTER → 2021-08-28 09:46 | Outpatient (BNVA) | payer MEDICARE, SELFPAY | PROVIDERS: PCP Family Medicine; Visit Provider Specialist | DX: I69.354 Hemiplegia and hemiparesis following cerebral infarction affecting left non-dominant side (principal); I69.398 Other sequelae of cerebral infarction; R26.89 Other abnormalities of gait and mobility; Z91.81 History of falling | CPT/HCPCS: 99205; G2212 ==

== ENCOUNTER → 2021-10-16 12:05 | Outpatient (BNVA) | payer MEDICARE, SELFPAY | PROVIDERS: PCP Family Medicine; Visit Provider Family Medicine | DX: D64.9 Anemia, unspecified (principal); I63.9 Cerebral infarction, unspecified; M48.07 Spinal stenosis, lumbosacral region; I48.20 Chronic atrial fibrillation, unspecified; I10 Essential (primary) hypertension | CPT/HCPCS: 80053; 85025 ==

== ENCOUNTER → 2021-12-05 10:39 | Outpatient (BNVA) | payer MEDICARE, SELFPAY | PROVIDERS: PCP Family Medicine; Visit Provider Specialist | DX: R29.90 Unspecified symptoms and signs involving the nervous system (principal) | CPT/HCPCS: G0463 ==

== ENCOUNTER → 2022-05-07 15:22 | Outpatient (BNVA) | payer MEDICARE, SELFPAY | PROVIDERS: PCP Family Medicine; Visit Provider Family Medicine | DX: I10 Essential (primary) hypertension (principal); I48.20 Chronic atrial fibrillation, unspecified | CPT/HCPCS: 80053; 85025 ==

== ENCOUNTER → 2023-06-10 14:33 | Outpatient (BNVA) | payer MEDICARE, SELFPAY | PROVIDERS: PCP Family Medicine; Visit Provider Family Medicine | DX: I10 Essential (primary) hypertension (principal); M48.07 Spinal stenosis, lumbosacral region | CPT/HCPCS: 80053; 85025 ==

== ENCOUNTER → 2024-05-11 14:42 | Outpatient (BNVA) | payer MEDICARE, SELFPAY | PROVIDERS: PCP Family Medicine; Visit Provider Family Medicine | DX: I10 Essential (primary) hypertension (principal); D64.9 Anemia, unspecified | CPT/HCPCS: 80053; 84443; 85025 ==

== ENCOUNTER → 2025-04-15 12:58 | Outpatient (BNVA) | payer MEDICARE, SELFPAY | PROVIDERS: PCP Family Medicine; Visit Provider Family Medicine | DX: I10 Essential (primary) hypertension (principal); I63.311 Cerebral infarction due to thrombosis of right middle cerebral artery | CPT/HCPCS: 80053; 85025 ==